=== PATIENT | male | born 1980 | race Caucasian/White ===

== ENCOUNTER 2023-02-09 00:56 | Emergency (ER) | payer OTHER ==
[2023-02-09 01:03] VITALS: TEMP 97.7
--- NOTE | 2023-02-09 01:43 | ED ---
Alcohol HPI - General Source: EMS Mode of arrival: EMS Limitations: no limitations <Yulisa Trivedi - Last Filed: 02/09/23 04:27> <Jovanny Curiel - Last Filed: 02/09/23 09:31> - General Chief Complaint: Alcohol Stated Complaint: ETOH Time Seen by Provider: 02/09/23 01:04 - History of Present Illness Initial Comments: 43-year-old male brought in by EMS. He was found laying down in a ditch. Patient reports that he is currently homeless and was just taking a nap. Patient is a daily drinker and states he normally drinks 3 tall cans per day. States that today he drunk about 5 tall cans. He is having no physical complaints at this time. He denies any injury or trauma. No chest pain, difficulty breathing, abdominal pain, URI-like symptoms, nausea, vomiting. He is requesting something to eat. (Yulisa Trivedi) - Related Data Allergies Allergy/AdvReac Type Severity Reaction Status Date / Time No Known Allergies Allergy Verified 02/09/23 01:03 Review of Systems ROS Other: All systems not noted in ROS Statement are negative. <Yulisa Trivedi - Last Filed: 02/09/23 04:27> ROS Other: All systems not noted in ROS Statement are negative. <Jovanny Curiel - Last Filed: 02/09/23 09:31> ROS Statement: Those systems with pertinent positive or pertinent negative responses have been documented in the HPI. Past Medical History Past Medical History: No Reported History History of Any Multi-Drug Resistant Organisms: None Reported Past Surgical History: No Surgical Hx Reported Past Psychological History: No Psychological Hx Reported Smoking Status: Current every day smoker Past Alcohol Use History: Heavy Past Drug Use History: Marijuana <Yulisa Trivedi - Last Filed: 02/09/23 04:27> General Exam Limitations: no limitations General appearance: alert, in no apparent distress Head exam: Present: atraumatic, normocephalic, normal inspection Eye exam: Present: normal appearance, EOMI. Absent: scleral icterus, periorbital swelling Neck exam: Present: normal inspection, full ROM Respiratory exam: Present: normal lung sounds bilaterally. Absent: respiratory distress, wheezes, rales, rhonchi, stridor Cardiovascular Exam: Present: regular rate, normal rhythm, normal heart sounds. Absent: systolic murmur, diastolic murmur, rubs, gallop, clicks Neurological exam: Present: alert, oriented X3 Psychiatric exam: Present: normal affect, normal mood Skin exam: Present: warm, dry, intact, normal color. Absent: rash <Yulisa Trivedi - Last Filed: 02/09/23 04:27> Course Vital Signs 02/09/23 02/09/23 00:58 04:00 Temperature 97.7 F Pulse Rate 88 80 Respiratory 16 18 Rate Blood Pressure 127/94 130/77 O2 Sat by Pulse 98 98 Oximetry Medical Decision Making <Jovanny Curiel - Last Filed: 02/09/23 09:31> - Medical Decision Making Patient was being monitored for sobriety overnight. I was notified by nursing staff the patient is now sober. He is walking, and is clinically sober at this time. He'll be discharged home at this time. Vital signs remained within acceptable limits. No evidence of withdrawals. He is feeling improved. Diagnosis/symptom? @ -Alcohol intoxication Acute, or Chronic, or Acute on Chronic? @ -Acute Uncomplicated (without systemic symptoms) or Complicated (systemic symptoms)? @ -Uncomplicated Side effects of treatment? @ -none Exacerbation, Progression, or Severe Exacerbation] @ -no Poses a threat to life or bodily function? @ -no (Jovanny Curiel) - Lab Data Lab Results 02/09/23 Range/Units 01:22 Serum Alcohol 327 H* mg/dL Disposition <Trivedi,Yulisa - Last Filed: 02/09/23 04:27> Is patient prescribed a controlled substance at d/c from ED?: No Time of Disposition: 09:30 <Jovanny Curiel - Last Filed: 02/09/23 09:31> Clinical Impression: Alcoholic intoxication Disposition: HOME SELF-CARE Condition: Fair Instructions (If sedation given, give patient instructions): Alcohol Intoxication (ED) Additional Instructions: Follow-up with PCP. Report back to ER with any new or worsening symptoms. Referrals: None,Stated [Primary Care Provider] - 1-2 days Bony Billings MD [STAFF PHYSICIAN] - 1-2 days
[2023-02-09] MEDS ORDERED: THIAMINE 100 MG/ML 2 ML VIAL IM STA (04:16)
[2023-02-09] MEDS ORDERED: LORazepam 2 MG/ML INJ IV PRN ×3 (04:16)
[2023-02-09 06:18] VITALS: BP 130/77; PULSE 80; RESP 18
[2023-02-10] MEDS ORDERED: THIAMINE 100 MG TAB PO SCH (09:00)
== END 2023-02-09 09:49 | disposition home or self-care (01) ==
LOC: EC 00:56
DX: F10.129 Alcohol abuse with intoxication, unspecified (principal); F17.200 Nicotine dependence, unspecified, uncomplicated; F12.90 Cannabis use, unspecified, uncomplicated
CPT/HCPCS: 36415; 99284; 96372; G0480; J3411; 80320

== ENCOUNTER 2023-04-20 05:07 | Observation (INO) | payer OTHER ==
[2023-04-20] MEDS ORDERED: SODIUM CHLORIDE 0.9% 1,000 ML IV ONE (05:32)
--- NOTE | 2023-04-20 05:42 | ED ---
General Adult HPI - General Chief complaint: Alcohol Stated complaint: Detox Time Seen by Provider: 04/20/23 05:20 Source: patient, RN notes reviewed, old records reviewed Mode of arrival: ambulatory Limitations: no limitations - History of Present Illness Initial comments: 43-year-old male with acute alcohol intoxication. Patient admits to heavy alcoh ol consumption over the past one week. He is alert but somewhat lethargic at the time my initial evaluation. No suicidal or homicidal ideation. No vomiting. No chest pain or abdominal pain. - Related Data Allergies Allergy/AdvReac Type Severity Reaction Status Date / Time No Known Allergies Allergy Verified 04/20/23 05:12 Review of Systems ROS Statement: Those systems with pertinent positive or pertinent negative responses have been documented in the HPI. ROS Other: All systems not noted in ROS Statement are negative. Past Medical History Past Medical History: No Reported History History of Any Multi-Drug Resistant Organisms: None Reported Past Surgical History: No Surgical Hx Reported Past Psychological History: No Psychological Hx Reported Smoking Status: Current every day smoker Past Alcohol Use History: Heavy Past Drug Use History: Marijuana General Exam Limitations: no limitations General appearance: alert, appears intoxicated Head exam: Present: atraumatic, normocephalic Eye exam: Present: normal appearance, PERRL ENT exam: Present: mucous membranes dry Neck exam: Present: normal inspection. Absent: tenderness, meningismus Respiratory exam: Present: normal lung sounds bilaterally. Absent: respiratory distress, wheezes Cardiovascular Exam: Present: regular rate, normal rhythm GI/Abdominal exam: Present: soft. Absent: distended, tenderness Extremities exam: Present: normal inspection, normal capillary refill Neurological exam: Present: alert, oriented X3, CN II-XII intact. Absent: motor sensory deficit Psychiatric exam: Present: normal affect, normal mood Skin exam: Present: warm, dry, intact. Absent: cyanosis, diaphoretic Course Vital Signs 04/20/23 05:12 Temperature 97.7 F Pulse Rate 94 Respiratory 18 Rate Blood Pressure 145/103 O2 Sat by Pulse 95 Oximetry Medical Decision Making - Medical Decision Making Was pt. sent in by a medical professional or institution (, [facility], PAPER CUP MACHINE TENDER, urgent care, hospital, or half-way...) When possible be specific @ -No Did you speak to anyone other than the patient for history (EMS, parent, family, police, friend...)? What history was obtained from this source @ -No Did you review nursing and triage notes (agree or disagree)? Why? @ -I reviewed and agree with nursing and triage notes Were old charts reviewed (outside hosp., previous admission, EMS record, old EKG, old radiological studies, urgent care reports/EKG's, half-way records)? Report findings @ -No old charts were reviewed Differential Diagnosis (chest pain, altered mental status, abdominal pain women, abdominal pain men, vaginal bleeding, weakness, fever, dyspnea, syncope, headache, dizziness, GI bleed, back pain, seizure, CVA, palpatations, mental health, musculoskeletal)? @ -[Alcohol intoxication EKG interpreted by me (3pts min.). @ -As above X-rays interpreted by me (1pt min.). @ -None done CT interpreted by me (1pt min.). @ -None done U/S interpreted by me (1pt. min.). @ -None done What testing was considered but not performed or refused? (CT, X-rays, U/S, labs)? Why? @ -None What meds were considered but not given or refused? Why? @ -None Did you discuss the management of the patient with other professionals (professionals i.e. Dr., PA, PAPER CUP MACHINE TENDER, lab, RT, psych nurse, foster care social worker, sharepoint developer, teacher, tactical/mobile watch officer, high risk case manager)? Give summary @Down physician group. Was smoking cessation discussed for >3mins.? @ -No Was critical care preformed (if so, how long)? @ -No Were there social determinants of health that impacted care today? How? (Homelessness, low income, unemployed, alcoholism, drug addiction, tang sportation, low edu. Level, literacy, decrease access to med. care, [facility], rehab)? @ -[Homeless, alcohol abuse Was there de-escalation of care discussed even if they declined (Discuss DNR or withdrawal of care, Hospice)? DNR status @ -No What co-morbidities impacted this encounter? (DM, HTN, Smoking, COPD, CAD, Cancer, CVA, ARF, Chemo, Hep., AIDS, mental health diagnosis, sleep apnea, morbid obesity)? @ -None Was patient admitted / discharged? Hospital course, mention meds given and route, prescriptions, significant lab abnormalities, going to OR and other pertinent info. @43-year-old male presents for severe alcohol intoxication. Patient has a blood alcohol level of 380. He is homeless. He does not have any friends or family to contact. He will be observed awaiting sobriety. Undiagnosed new problem with uncertain prognosis? @ -No Drug Therapy requiring intensive monitoring for toxicity (Heparin, Nitro, Insulin, Cardizem)? @ -No Were any procedures done? @ -No Diagnosis/symptom? @ -[Alcohol intoxication Acute, or Chronic, or Acute on Chronic? @ -default Uncomplicated (without systemic symptoms) or Complicated (systemic symptoms)? @ -default Side effects of treatment? @ -No Exacerbation, Progression, or Severe Exacerbation? @ -No Poses a threat to life or bodily function? How? (Chest pain, USA, CT, pneumonia, PE, COPD, DKA, ARF, appy, cholecystitis, CVA, Diverticulitis, Homicidal, Suicidal, threat to staff... and all critical care pts) @Yes, alcohol intoxication - Lab Data Result diagrams: 04/20/23 05:33 04/20/23 05:33 Lab Results 04/20/23 04/20/23 04/20/23 Range/Units 05:33 05:33 05:33 WBC 9.3 (3.8-10.6) k/uL RBC 4.46 (4.30-5.90) m/uL Hgb 14.9 (13.0-17.5) gm/dL Hct 44.4 (39.0-53.0) % MCV 99.6 (80.0-100.0) fL MCH 33.4 (25.0-35.0) pg MCHC 33.6 (31.0-37.0) g/dL RDW 13.6 (11.5-15.5) % Plt Count 224 (150-450) k/uL MPV 7.6 Neutrophils % 40 % Lymphocytes % 45 % Monocytes % 7 % Eosinophils % 3 % Basophils % 1 % Neutrophils # 3.8 (1.3-7.7) k/uL Lymphocytes # 4.2 (1.0-4.8) k/uL Monocytes # 0.6 (0-1.0) k/uL Eosinophils # 0.3 (0-0.7) k/uL Basophils # 0.1 (0-0.2) k/uL Sodium 146 H (137-145) mmol/L Potassium 4.3 (3.5-5.1) mmol/L Chloride 110 H (98-107) mmol/L Carbon Dioxide 25 (22-30) mmol/L Anion Gap 11 mmol/L BUN 10 (9-20) mg/dL Creatinine 0.67 (0.66-1.25) mg/dL Est GFR (CKD-EPI)AfAm >90 (>60 ml/min/1.73 sqM) Est GFR (CKD-EPI)NonAf >90 (>60 ml/min/1.73 sqM) Glucose 81 (74-99) mg/dL Plasma Lactic Acid Yonatan 1.4 (0.7-2.0) mmol/L Calcium 8.4 (8.4-10.2) mg/dL Total Bilirubin 0.5 (0.2-1.3) mg/dL AST 90 H (17-59) U/L ALT 57 H (4-49) U/L Alkaline Phosphatase 65 (38-126) U/L Total Protein 7.5 (6.3-8.2) g/dL Albumin 4.4 (3.5-5.0) g/dL Serum Alcohol 382 H* mg/dL Disposition Clinical Impression: Alcoholic intoxication Disposition: ADMITTED IP TO THIS HOSP Condition: Stable Is patient prescribed a controlled substance at d/c from ED?: No Referrals: None,Stated [Primary Care Provider] - 1-2 days Time of Disposition: 06:24
[2023-04-20 06:01] LABS: Basophils # (A) 0.1 k/uL (0-0.2); Basophils % (A) 1 %; Eosinophils # (A) 0.3 k/uL (0-0.7); Eosinophils % (A) 3 %; HCT 44.4 % (39.0-53.0); HGB 14.9 gm/dL (13.0-17.5); Lymphocytes # (A) 4.2 k/uL (1.0-4.8); Lymphocytes % (A) 45 %; MCH 33.4 pg (25.0-35.0); MCHC 33.6 g/dL (31.0-37.0); MCV 99.6 fL (80.0-100.0); Mean Platelet Volume 7.6; Monocytes # (A) 0.6 k/uL (0-1.0); Monocytes % (A) 7 %; Neutrophils # (A) 3.8 k/uL (1.3-7.7); Neutrophils % (A) 40 %; Platelet Count 224 k/uL (150-450); RBC 4.46 m/uL (4.30-5.90); RDW 13.6 % (11.5-15.5); WBC 9.3 k/uL (3.8-10.6)
[2023-04-20 06:06] LABS: ALT 57 U/L (4-49); AST 90 U/L (17-59); African American GFR (CKD) >90 (>60 ml/min/1.73 sqM); Albumin 4.4 g/dL (3.5-5.0); Alkaline Phosphatase 65 U/L (38-126); Anion Gap 11 mmol/L; Blood Urea Nitrogen 10 mg/dL (9-20); Calcium 8.4 mg/dL (8.4-10.2); Carbon Dioxide 25 mmol/L (22-30); Chloride 110 mmol/L (98-107); Glucose 81 mg/dL (74-99); Non-African American GFR(CKD) >90 (>60 ml/min/1.73 sqM); Potassium 4.3 mmol/L (3.5-5.1); Sodium 146 mmol/L (137-145); Total Bilirubin 0.5 mg/dL (0.2-1.3); Total Protein 7.5 g/dL (6.3-8.2)
[2023-04-20 06:17] LABS: Alcohol 382 mg/dL
[2023-04-20] MEDS ORDERED: NALOXONE 0.4 MG/ML 1 ML VIAL IV PRN (06:22)
[2023-04-20] MEDS: SODIUM CHLORIDE 0.9% 1,000 ML IV SCH (07:01)
[2023-04-20] MEDS ORDERED: LORazepam 2 MG/ML INJ IV PRN ×2 (08:23)
[2023-04-20] MEDS ORDERED: ONDANSETRON 4 MG/2 ML VIAL IVP PRN (08:23)
[2023-04-20] MEDS ORDERED: LORazepam 1 MG TAB PO PRN ×2 (08:23)
[2023-04-20] MEDS ORDERED: THIAMINE 100 MG/ML 2 ML VIAL IM STA (08:23)
[2023-04-20] MEDS ORDERED: LORazepam 0.5 MG TAB PO PRN (08:23)
[2023-04-20] MEDS ORDERED: MELATONIN 3 MG TABLET PO PRN (08:23)
[2023-04-20] MEDS ORDERED: ACETAMINOPHEN TAB 325 MG TAB PO PRN (08:23)
--- NOTE | 2023-04-20 09:13 | P.HPIM ---
History of Present Illness H&P Date: 04/20/23 History of Presenting Illness: Patient is a 43-year-old male with a past medical history of chronic alcohol abuse reportedly drinking one fifth of liquor daily, nicotine dependence, and cannabinoid use disorder. Patient presented to the emergency department with alcohol intoxication, he reports undergoing a binge over the past couple weeks drinking approximately 2 fifths per day and he came to the emergency department for assistance with detox. Patient reports history of pretty significant DTs with previous hospitalizations. He denies previous intubations or ICU status. Patient denies previous withdrawal seizure. He does report smoking greater than one pack of cigarettes daily along with daily cannabinoid use, but denies any other drug use. Patient reports he is currently homeless and requesting assistance with medical detox and planning to attend inpatient drug and alcohol rehab upon discharge he is able to get into one. Upon arrival to the emergency department patient underwent full evaluation. Vital signs are stable with blood pressure 145/103, heart rate 94, respiratory rate 18, temp 97.7F, and SpO2 of 95% on room air. Labs completed and reviewed. CBC unremarkable. BMP revealing hypernatremia with sodium of 146 hyperchloremia with chloride of 110. Liver profile showing elevated AST of 90 and ALT of 57. Serum alcohol level was 382. Patient was given IV fluid bolus and started on maintenance infusion. Discussed patient complaints, physical exam findings, and laboratory analysis in detail with the ED physician. Patient being admitted under our services for alcohol intoxication and plans for medical detox. Review of systems: Pertinent positives and negatives as discussed in HPI, a complete review of systems was performed and all other systems are negative. Physical exam: Vital signs reviewed and stable. General: Nontoxic, no distress and appears older than stated age. Disheveled appearance. Derm: Skin warm and dry, normal coloration for ethnicity. Head: Atraumatic, normocephalic and symmetric. Eyes: EOMs intact, no lid lag, and anicteric sclera Mouth: no lip lesions, mucus membranes moist Cardiovascular: regular rate and rhythm with normal S1S2, no murmur, positive posterior tibial pulses bilaterally, and cap refill < 2 seconds. Lungs: Respirations even, regular, and unlabored on room air. Lungs CTA bilaterally, no rhonchi, no rales, no wheezing, and no accessory muscle usage. Abdominal: soft, nontender to palpation, no guarding, no appreciable organomegaly Ext: ROM intact. No gross muscle atrophy, no edema, no contractures Neuro: Speech clear, face symmetrical and CN II-XII grossly intact with no noted focal neuro deficits Psych: Alert and oriented to person, place, time, and situation. Appropriate and pleasant affect. Assessment and Plan of Care: Patient is a 43-year-old male with a past medical history of chronic alcohol abuse whom presented to the emergency department with alcohol intoxication reporting a two-week beltrán. Patient reports history is significant DTs requiring hospitalization and states he has been admitted to inpatient drug and alcohol rehabilitation centers multiple times. Patient requesting help getting clean with medical detox at this time. Patient reports he plans on attending rehab at time of discharge. Data review: Vital signs are stable with blood pressure 145/103, heart rate 94, respiratory rate 18, temp 97.7F, and SpO2 of 95% on room air. -Labs completed and reviewed. CBC unremarkable. BMP revealing hypernatremia with sodium of 146 hyperchloremia with chloride of 110. Liver profile showing elevated AST of 90 and ALT of 57. Serum alcohol level was 382. Patient was given IV fluid bolus and started on maintenance infusion. Discussed patient complaints, physical exam findings, and laboratory analysis in detail with the ED physician. Patient being admitted under our services for alcohol intoxication and plans for medical detox. Alcohol intoxication an active alcoholic Impending alcohol withdrawal, history of DTs Elevated liver enzymes secondary to chronic alcohol abuse -Order placed for monitoring of CIWA scores and patient to be medicated with Ativan 0.5 mg every 4 hours as needed for CIWA score of 4-5, Ativan 1 mg every 4 hours for CIWA score of 6-7, Ativan 2 mg every 3 hours CIWA score of 8-9, and Ativan 2 mg every 2 hours forr CIWA score of 10 or greater. -Continuous IV hydration. -Thiamine 100 mg twice a day -Multivitamin daily -Folate 1 mg daily -Seizure, fall, aspiration, and elopement precautions in place. -Urine drug screen ordered -Continued close monitoring of electrolytes and replace as needed. -Telemetry monitoring. Nicotine dependence Cannabinoid use disorder -Patient to be encouraged on smoking cessation and cessation and use of marijuana. -Order placed for nicotine patch 21 mg daily. The patient is admitted with an anticipated greater than 2 midnight stay for evaluation of alcohol intoxication with plans for medical detox CODE STATUS: Full code DVT prophylaxis: Lovenox Discussed with: Patient, RN, in ED physician Anticipated discharge date: Clinical course to determine Anticipated discharge place: Patient plans on attending inpatient drug and alcohol rehab center Patient was seen independently by Nurse Practitioner. This document was prepared using [employer] dictation software. Please allow for errors in outside machinist helper while rare they do occur. Lyndon Henao NP rendered care for this patient independently, reviewed the findings and plan as documented in the note above. I did not physically speak with or examine the patient on this date. Past Medical History Past Medical History: No Reported History History of Any Multi-Drug Resistant Organisms: None Reported Past Surgical History: No Surgical Hx Reported Past Psychological History: No Psychological Hx Reported Smoking Status: Current every day smoker Past Alcohol Use History: Heavy Past Drug Use History: Marijuana Medications and Allergies Home Medications Medication Instructions Recorded Confirmed Type No Known Home Medications 04/20/23 04/20/23 History Allergies Allergy/AdvReac Type Severity Reaction Status Date / Time No Known Allergies Allergy Verified 04/20/23 07:08 Physical Exam Vitals: Vital Signs Temp Pulse Resp BP Pulse Ox 04/20/23 08:18 64 16 100/73 93 L 04/20/23 07:30 60 16 102/75 92 L 04/20/23 06:40 63 18 117/88 93 L 04/20/23 05:12 97.7 F 94 18 145/103 95 Intake and Output 04/19/23 04/20/23 04/20/23 22:59 06:59 14:59 Other: Weight 58.967 kg Results CBC & Chem 7: 04/20/23 05:33 04/20/23 05:33 Labs: Abnormal Lab Results - Last 24 Hours (Table) 04/20/23 Range/Units 05:33 Sodium 146 H (137-145) mmol/L Chloride 110 H (98-107) mmol/L AST 90 H (17-59) U/L ALT 57 H (4-49) U/L Serum Alcohol 382 H* mg/dL
[2023-04-20] MEDS: ENOXAPARIN 40 MG/0.4 ML SYRINGE SQ SCH (09:38)
[2023-04-20] MEDS: FOLIC ACID 1 MG TAB PO SCH (09:38)
[2023-04-20] MEDS: MULTIVITAMINS, THERA 1 EACH TAB PO SCH (09:38)
[2023-04-20] MEDS: NICOTINE 21MG/24HR PATCH TRANSDERM SCH (09:39)
[2023-04-20] MEDS: KETOROLAC 15 MG/ML 1 ML VIAL IVP PRN (17:40)
[2023-04-20] MEDS: LORazepam 1 MG TAB PO PRN (17:40)
[2023-04-20 23:21] LABS: Amphetamine Screen,Urine Not Detected (NotDetected); Barbiturate Screen,Urine Not Detected (NotDetected); Benzodiazepines Screen,Urine Detected (NotDetected); Cocaine Screen,Urine Not Detected (NotDetected); Methadone Screen, Urine Not Detected (NotDetected); Opiate Screen,Urine Not Detected (NotDetected); Oxycodone Screen, Urine Not Detected (NotDetected); Phencyclidine Screen,Urine Not Detected (NotDetected); Tricyclic Antidepressant,Urine Not Detected (NotDetected); Urn Cannabinoid Scrn Detected (NotDetected)
[2023-04-21] MEDS: SODIUM CHLORIDE 0.9% 1,000 ML IV SCH ×2 (01:21→11:11)
[2023-04-21] MEDS: LORazepam 1 MG TAB PO PRN ×4 (04:49→22:44)
[2023-04-21] MEDS: THIAMINE 100 MG TAB PO SCH (11:11)
[2023-04-21] MEDS: ENOXAPARIN 40 MG/0.4 ML SYRINGE SQ SCH (11:11)
[2023-04-21] MEDS: NICOTINE 21MG/24HR PATCH TRANSDERM SCH (11:11)
[2023-04-21] MEDS: FOLIC ACID 1 MG TAB PO SCH (11:11)
[2023-04-21] MEDS: MULTIVITAMINS, THERA 1 EACH TAB PO SCH (11:11)
--- NOTE | 2023-04-21 15:16 | P.PN ---
Subjective Progress Note Date: 04/21/23 Hospital course: Patient is a 43-year-old male with a past medical history of chronic alcohol abuse reportedly drinking one fifth of liquor daily, nicotine dependence, and cannabinoid use disorder. Patient presented to the emergency department with alcohol intoxication, he reported undergoing a binge over the past couple weeks drinking approximately 2 fifths per day and he came to the emergency department for assistance with detox. Patient reports history of pretty significant DTs with previous hospitalizations. He denies previous intubations or ICU status. Patient denies previous withdrawal seizure. He does report smoking greater than one pack of cigarettes daily along with daily cannabinoid use, but denies any other drug use. Patient reports he is currently homeless and requesting assistance with medical detox and planning to attend inpatient drug and alcohol rehab upon discharge he is able to get into one. Upon arrival to the emergency department patient underwent full evaluation. Vital signs are stable with blood pressure 145/103, heart rate 94, respiratory rate 18, temp 97.7F, and SpO2 of 95% on room air. Labs completed and reviewed. CBC unremarkable. BMP revealing hypernatremia with sodium of 146 hyperchloremia with chloride of 110. Liver profile showing elevated AST of 90 and ALT of 57. Serum alcohol level was 382. Patient was given IV fluid bolus and started on maintenance infusion. Discussed patient complaints, physical exam findings, and laboratory analysis in detail with the ED physician. Patient was admitted under our services for alcohol intoxication and plans for medical detox. Physical exam: Vital signs reviewed and stable. General: Nontoxic, no distress and appears older than stated age. Disheveled appearance. Derm: Skin warm and dry, normal coloration for ethnicity. Head: Atraumatic, normocephalic and symmetric. Eyes: EOMs intact, no lid lag, and anicteric sclera Mouth: no lip lesions, mucus membranes moist Cardiovascular: regular rate and rhythm with normal S1S2, no murmur, positive posterior tibial pulses bilaterally, and cap refill < 2 seconds. Lungs: Respirations even, regular, and unlabored on room air. Lungs CTA bilaterally, no rhonchi, no rales, no wheezing, and no accessory muscle usage. Abdominal: soft, nontender to palpation, no guarding, no appreciable organomegaly Ext: ROM intact. No gross muscle atrophy, no edema, no contractures Neuro: Speech clear, face symmetrical and CN II-XII grossly intact with no noted focal neuro deficits Psych: Alert and oriented to person, place, time, and situation. Appropriate and pleasant affect. Assessment and Plan of Care: Patient is a 43-year-old male with a past medical history of chronic alcohol abuse whom presented to the emergency department with alcohol intoxication reporting a two-week beltrán. Patient reported history of significant DTs requiring hospitalization and stated he has been admitted to inpatient drug and alcohol rehabilitation centers multiple times. Patient requesting help getting clean with medical detox at this time. Patient reports he plans on attending rehab at time of discharge. Alcohol intoxication an active alcoholic Impending alcohol withdrawal, history of DTs Elevated liver enzymes secondary to chronic alcohol abuse -Continue monitoring of CIWA scores and patient to be medicated with Ativan 0.5 mg every 4 hours as needed for CIWA score of 4-5, Ativan 1 mg every 4 hours for CIWA score of 6-7, Ativan 2 mg every 3 hours CIWA score of 8-9, and Ativan 2 mg every 2 hours forr CIWA score of 10 or greater. -Patient has had a total of 6 mg of Ativan over the past 24 hours with the most recent CIWA score of 7. -Continuous IV hydration with 0.9% normal saline at 75 mL's per hour. -Continue Thiamine 100 mg twice a day, Multivitamin daily, and Folate 1 mg daily -Seizure, fall, aspiration, and elopement precautions in place. -Continued close monitoring of electrolytes and replace as needed. -Telemetry monitoring. Nicotine dependence Cannabinoid use disorder -Patient to be encouraged on smoking cessation and cessation and use of marijuana. -Order placed for nicotine patch 21 mg daily. Data review: Vital signs are stable with blood pressure 145/103, heart rate 94, respiratory rate 18, temp 97.7F, and SpO2 of 95% on room air. -Urine drug screen resulting positive for benzodiazepines which of been administered while in the hospital along with marijuana. -Vital signs reviewed and stable with blood pressure 138/94, heart rate 89, respiratory rate 18, temp 98.5F SpO2 of 97% on room air. CODE STATUS: Full code DVT prophylaxis: Lovenox Discussed with: Patient and RN Anticipated discharge date: Clinical course to determine Anticipated discharge place: Patient plans on attending inpatient drug and alcohol rehab center Patient was seen independently by Nurse Practitioner. This document was prepared using [email or web address] dictation software. Please allow for errors in tower switch operator while rare they do occur. Lyndon Henao PARK WORKER SUPERVISOR rendered care for this patient independently, reviewed the findings and plan as documented in the note above. I did not physically speak with or examine the patient on this date. Objective - Vital Signs Vital signs: Vital Signs Temp 98.5 F 04/21/23 07:10 Pulse 89 04/21/23 07:10 Resp 18 04/21/23 07:10 BP 138/94 04/21/23 07:10 Pulse Ox 97 04/21/23 07:10 FiO2 Intake & Output 04/20/23 04/21/23 04/21/23 18:59 06:59 18:59 Weight 58.967 kg Other: Voiding Method Toilet # Voids 3 - Labs CBC & Chem 7: 04/22/23 08:54 04/22/23 08:54 Labs: Abnormal Lab Results - Last 24 Hours (Table) 04/20/23 Range/Units 22:55 U Benzodiazepines Scrn Detected H (NotDetected) U Marijuana (THC) Screen Detected H (NotDetected)
[2023-04-22] MEDS: LORazepam 1 MG TAB PO PRN ×4 (04:06→23:58)
[2023-04-22] MEDS: SODIUM CHLORIDE 0.9% 1,000 ML IV SCH ×2 (05:47→09:01)
[2023-04-22] MEDS: MULTIVITAMINS, THERA 1 EACH TAB PO SCH (09:00)
[2023-04-22] MEDS: NICOTINE 21MG/24HR PATCH TRANSDERM SCH (09:00)
[2023-04-22] MEDS: ENOXAPARIN 40 MG/0.4 ML SYRINGE SQ SCH (09:00)
[2023-04-22] MEDS: FOLIC ACID 1 MG TAB PO SCH (09:00)
[2023-04-22] MEDS: THIAMINE 100 MG TAB PO SCH (09:00)
[2023-04-22 10:32] LABS: ALT 54 U/L (4-49); AST 75 U/L (17-59); African American GFR (CKD) >90 (>60 ml/min/1.73 sqM); Albumin 3.8 g/dL (3.5-5.0); Albumin/Globulin Ratio 1.2; Alkaline Phosphatase 68 U/L (38-126); Anion Gap 7 mmol/L; Blood Urea Nitrogen 12 mg/dL (9-20); Calcium 8.9 mg/dL (8.4-10.2); Carbon Dioxide 25 mmol/L (22-30); Chloride 104 mmol/L (98-107); Globulin 3.1 g/dL; Glucose 99 mg/dL (74-99); Non-African American GFR(CKD) >90 (>60 ml/min/1.73 sqM); Potassium 4.1 mmol/L (3.5-5.1); Sodium 136 mmol/L (137-145); Total Bilirubin 0.9 mg/dL (0.2-1.3); Total Protein 6.9 g/dL (6.3-8.2)
[2023-04-22 10:40] LABS: HCT 45.4 % (39.0-53.0); HGB 14.7 gm/dL (13.0-17.5); MCH 33.4 pg (25.0-35.0); MCHC 32.5 g/dL (31.0-37.0); MCV 102.8 fL (80.0-100.0); Macrocytosis Slight; Mean Platelet Volume 9.5; Platelet Count 149 k/uL (150-450); RBC 4.41 m/uL (4.30-5.90); RDW 13.7 % (11.5-15.5); WBC 10.2 k/uL (3.8-10.6)
[2023-04-22] MEDS: KETOROLAC 15 MG/ML 1 ML VIAL IVP PRN ×2 (15:56→23:56)
--- NOTE | 2023-04-22 17:40 | P.PN ---
Subjective Progress Note Date: 04/22/23 Hospital course: Patient is a 43-year-old male with a past medical history of chronic alcohol abuse reportedly drinking one fifth of liquor daily, nicotine dependence, and cannabinoid use disorder. Patient presented to the emergency department with alcohol intoxication, he reported undergoing a binge over the past couple weeks drinking approximately 2 fifths per day and he came to the emergency department for assistance with detox. Patient reports history of pretty significant DTs with previous hospitalizations. He denies previous intubations or ICU status. Patient denies previous withdrawal seizure. He does report smoking greater than one pack of cigarettes daily along with daily cannabinoid use, but denies any other drug use. Patient reports he is currently homeless and requesting assistance with medical detox and planning to attend inpatient drug and alcohol rehab upon discharge he is able to get into one. Upon arrival to the emergency department patient underwent full evaluation. Vital signs are stable with blood pressure 145/103, heart rate 94, respiratory rate 18, temp 97.7F, and SpO2 of 95% on room air. Labs completed and reviewed. CBC unremarkable. BMP revealing hypernatremia with sodium of 146 hyperchloremia with chloride of 110. Liver profile showing elevated AST of 90 and ALT of 57. Serum alcohol level was 382. Patient was given IV fluid bolus and started on maintenance infusion. Discussed patient complaints, physical exam findings, and laboratory analysis in detail with the ED physician. Patient was admitted under our services for alcohol intoxication and plans for medical detox. Physical exam: Patient seen and fully evaluated at bedside this morning. Mild tremors present. Patient reports episodes of nausea and continued mild tremors otherwise denies having any complaints at this time. Patient reports "this is the easy he has detoxed in the past." Vital signs reviewed and stable. General: Nontoxic, no distress and appears older than stated age. Disheveled appearance. Derm: Skin warm and dry, normal coloration for ethnicity. Head: Atraumatic, normocephalic and symmetric. Eyes: EOMs intact, no lid lag, and anicteric sclera Mouth: no lip lesions, mucus membranes moist Cardiovascular: regular rate and rhythm with normal S1S2, no murmur, positive posterior tibial pulses bilaterally, and cap refill < 2 seconds. Lungs: Respirations even, regular, and unlabored on room air. Lungs CTA bilaterally, no rhonchi, no rales, no wheezing, and no accessory muscle usage. Abdominal: soft, nontender to palpation, no guarding, no appreciable organomegaly Ext: ROM intact. No gross muscle atrophy, no edema, no contractures Neuro: Speech clear, face symmetrical and CN II-XII grossly intact with no noted focal neuro deficits Psych: Alert and oriented to person, place, time, and situation. Appropriate and pleasant affect. Assessment and Plan of Care: Patient is a 43-year-old male with a past medical history of chronic alcohol abuse whom presented to the emergency department with alcohol intoxication reporting a two-week beltrán. Patient reported history of significant DTs requiring hospitalization and stated he has been admitted to inpatient drug and alcohol rehabilitation centers multiple times. Patient requesting help getting clean with medical detox at this time. Patient reports he plans on attending rehab at time of discharge. Alcohol intoxication an active alcoholic Impending alcohol withdrawal, history of DTs Elevated liver enzymes secondary to chronic alcohol abuse -Continue monitoring of CIWA scores and patient to be medicated with Ativan 0.5 mg every 4 hours as needed for CIWA score of 4-5, Ativan 1 mg every 4 hours for CIWA score of 6-7, Ativan 2 mg every 3 hours CIWA score of 8-9, and Ativan 2 mg every 2 hours forr CIWA score of 10 or greater. -Patient has had a total of 7.5 mg of Ativan over the past 24 hours with the most recent CIWA score of 7. -Patient tolerating oral intake, no episodes of vomiting. IV fluids discontinued at this time. -Continue Thiamine 100 mg twice a day, Multivitamin daily, and Folate 1 mg daily -Seizure, fall, aspiration, and elopement precautions in place. -Continued close monitoring of electrolytes and replace as needed. -Telemetry monitoring. Nicotine dependence Cannabinoid use disorder -Patien encouraged on smoking cessation and cessation and use of marijuana. -Continue nicotine patch 21 mg daily. Data review: -Vital signs are stable with blood pressure 147/105, heart rate 86, respiratory rate 18, temp 98.1F, SpO2 of 90% on room air. -Morning labs reviewed. CBC showing thrombocytopenia with platelet count of 149 and macrocytosis with MCV of 102.8. BMP revealing mild hyponatremia with sodium of 146 and otherwise unremarkable. Liver profile showing elevated AST of 75 and ALT of 54. Magnesium normal findings at 2.0 calcium normal at 8.9. CODE STATUS: Full code DVT prophylaxis: Lovenox Discussed with: Patient and RN Anticipated discharge date: Clinical course to determine, possibly tomorrow morning pending CIWA score and need for Ativan over the next [address]: Patient plans on attending inpatient drug and alcohol rehab center Patient was seen independently by Nurse Practitioner. This document was prepared using [employer] dictation software. Please allow for errors in information coder while rare they do occur. I reviewed the documentation as provided by the FITO above, who is the original author of this note. I agree with the documented assessment and plan, with the following changes: none Objective - Vital Signs Vital signs: Vital Signs Temp 98.1 F 04/22/23 07:15 Pulse 86 04/22/23 07:15 Resp 18 04/22/23 07:15 BP 147/105 04/22/23 07:15 Pulse Ox 98 04/22/23 07:15 FiO2 Intake & Output 04/21/23 04/22/23 04/22/23 18:59 06:59 18:59 Other: Voiding Method Toilet Toilet # Voids 2 3 - Labs CBC & Chem 7: 04/22/23 08:54 04/22/23 08:54
[2023-04-22 20:22] VITALS: RESP 19
[2023-04-23 02:31] VITALS: PULSE 68; TEMP 98.1
[2023-04-23] MEDS: LORazepam 1 MG TAB PO PRN (06:40)
[2023-04-23 09:34] VITALS: BP 132/81
[2023-04-23] MEDS: ENOXAPARIN 40 MG/0.4 ML SYRINGE SQ SCH (10:28)
[2023-04-23] MEDS: NICOTINE 21MG/24HR PATCH TRANSDERM SCH (10:28)
[2023-04-23] MEDS: THIAMINE 100 MG TAB PO SCH (10:28)
[2023-04-23] MEDS: MULTIVITAMINS, THERA 1 EACH TAB PO SCH (10:28)
[2023-04-23] MEDS: FOLIC ACID 1 MG TAB PO SCH (10:28)
--- NOTE | 2023-04-23 17:28 | P.DS ---
Providers Date of admission: 04/20/23 06:22 Attending physician: Teodoro Gould MD Primary care physician: Stated None Hospital Course: Discharge Diagnosis: Alcohol withdrawal with DTs. Alcohol intoxication an active alcoholic, patient clinically sober and went through a 3 night hospitalization for medical detox. Elevated liver enzymes secondary to chronic alcohol abuse Nicotine dependence Cannabinoid use disorder Hospital Course: Patient is a 43-year-old male with a past medical history of chronic alcohol abuse reportedly drinking one fifth of liquor daily, nicotine dependence, and cannabinoid use disorder. Patient presented to the emergency department with alcohol intoxication, he reported undergoing a binge over the past couple weeks drinking approximately 2 fifths per day and he came to the emergency department for assistance with detox. Patient reports history of pretty significant DTs with previous hospitalizations. He denies previous intubations or ICU status. Patient denies previous withdrawal seizure. He does report smoking greater than one pack of cigarettes daily along with daily cannabinoid use, but denies any other drug use. Patient reports he is currently homeless and requesting assistance with medical detox and planning to attend inpatient drug and alcohol rehab upon discharge he is able to get into one. Upon arrival to the emergency department patient underwent full evaluation. Vital signs are stable with blood pressure 145/103, heart rate 94, respiratory rate 18, temp 97.7F, and SpO2 of 95% on room air. Labs completed and reviewed. CBC unremarkable. BMP revealing hypernatremia with sodium of 146 hyperchloremia with chloride of 110. Liver profile showing elevated AST of 90 and ALT of 57. Serum alcohol level was 382. Patient was given IV fluid bolus and started on maintenance infusion. Patient was admitted under our services for alcohol intoxication and plans for medical detox. Patient underwent 3 night hospitalization for treatment and medical detox. Patient has received a total of 6 mg of Ativan over the past 24 hours. He currently reports feeling good this morning and would like to be discharged. Vital signs reviewed and stable with blood pressure 132/81, heart rate 67, respiratory rate 16, temp 98.1F, SpO2 of 97% on room air. Patient was given a list of community resources and inpatient drug and alcohol rehabilitation centers available to him. Patient reports that he has called in his unless to get into rehab but is going to stay with his sister at this time. CIWA score is 0. Medically, patient stable at this time. Patient strongly advised to avoid any and all alcohol use. Physical exam: Vital signs reviewed and stable. General: Nontoxic, no distress and appears older than stated age. Derm: Skin warm and dry, normal coloration for ethnicity. Head: Atraumatic, normocephalic and symmetric. Eyes: EOMs intact, no lid lag, and anicteric sclera Mouth: no lip lesions, mucus membranes moist Cardiovascular: regular rate and rhythm with normal S1S2, no murmur, positive posterior tibial pulses bilaterally, and cap refill < 2 seconds. Lungs: Respirations even, regular, and unlabored on room air. Lungs CTA bilaterally, no rhonchi, no rales, no wheezing, and no accessory muscle usage. Abdominal: soft, nontender to palpation, no guarding, no appreciable organomegaly Ext: ROM intact. No gross muscle atrophy, no edema, no contractures Neuro: Speech clear, face symmetrical and CN II-XII grossly intact with no noted focal neuro deficits Psych: Alert and oriented to person, place, time, and situation. Appropriate and pleasant affect. A total of 32 minutes of time were spent preparing this complex discharge summary. Pt was discharged on 04/23/23 11:58 AM. Patient was seen independently by Nurse Practitioner. This document was prepared using [employer] dictation software. Please allow for errors in cook helper while rare they do occur. I reviewed the documentation as provided by the FITO above, who is the original author of this note. I agree with the documented assessment and plan, with the following changes: none Patient Condition at Discharge: Stable Plan - Discharge Summary Discharge Rx Participant: Yes New Discharge Prescriptions: New Folic Acid 1 mg PO DAILY tab Multivitamins, Thera [Multivitamin (formulary)] 1 each PO DAILY tab Thiamine [Vitamin B-1] 100 mg PO DAILY tab Discharge Medication List Folic Acid 1 mg PO DAILY tab 04/23/23 [Rx] Multivitamins, Thera [Multivitamin (formulary)] 1 each PO DAILY tab 04/23/23 [Rx] Thiamine [Vitamin B-1] 100 mg PO DAILY tab 04/23/23 [Rx] Follow up Appointment(s)/Referral(s): None,Stated [Primary Care Provider] - 1-2 days (Please call a primary care provider for follow-up appointment.) Patient Instructions/Handouts: Alcohol Intoxication (DC), Abuse of Alcohol (DC), Alcohol Withdrawal (DC) Activity/Diet/Wound Care/Special Instructions: Activity: As tolerated. Take breaks as needed. Diet: Heart healthy and carb consistent diet. Avoid salts, or foods with hidden salts such as canned or boxed foods and frozen dinners. Extra salt makes your heart work harder and traps the fluid in your body for longer. Special Instructions: Take all of your medications as directed and remember to keep all of your doctor's appointments and follow-up as needed. Strongly encourage you to refrain from any and all alcohol use. Thank you for allowing us to participate in your care, it was truly a pleasure having you for our patient!!! Discharge/Stand Alone Forms: AA Meetings [place], [facility], [facility], Outpatient Counseling, Inp Substance Abuse Facilities, Area PCPs Discharge Disposition: HOME SELF-CARE
== END 2023-04-23 14:44 | disposition home or self-care (01) ==
LOC: EC 05:07 → 4SSUR 06:22
PROVIDERS: ADMIT Internal Medicine; ATTEND Internal Medicine
DX: F10.231 Alcohol dependence with withdrawal delirium (principal); F10.229 Alcohol dependence with intoxication, unspecified; F17.210 Nicotine dependence, cigarettes, uncomplicated; R74.8 Abnormal levels of other serum enzymes; F12.10 Cannabis abuse, uncomplicated; Y90.8 Blood alcohol level of 240 mg/100 ml or more; Z59.00 Homelessness unspecified
CPT/HCPCS: 96376; 96372 ×4; 96374; 96361; 99284; 36415; 80053 ×2; 83605; 83735; 85025; 85027; 80306; G0378 ×5; G0480; S4990 ×4; J3411; J1650 ×4; J1885 ×2; 80320

== ENCOUNTER 2023-05-22 20:45 | Emergency (ER) | payer OTHER ==
[2023-05-22 20:50] VITALS: RESP 18; TEMP 98
--- NOTE | 2023-05-22 23:41 | ED ---
General Adult HPI - General Chief complaint: Alcohol Stated complaint: alochol poising Time Seen by Provider: 05/22/23 23:14 Source: patient Mode of arrival: ambulatory Limitations: no limitations - History of Present Illness Initial comments: Dictation was produced using [employer] dictation software. please excuse any grammatical, word or spelling errors. Chief Complaint: 43-year-old alcoholic male presents emergency department for alcohol intoxication History of Present Illness: Patient is a 43-year-old male just allegedly dischar jono from rehab facility for alcohol abuse presents to the ER for alcohol intoxication. States that he relapsed. Patient reports that he is homeless. States that he drank a pint of liquor today. Patient is a poor historian. The ROS documented in this emergency department record has been reviewed and confirmed by me. Those systems with pertinent positive or negative responses have been documented in the HPI. All other systems are other negative and/or noncontributory. - Related Data Previous Rx's Medication Instructions Recorded Folic Acid 1 mg PO DAILY tab 04/23/23 Multivitamins, Thera [Multivitamin 1 each PO DAILY tab 04/23/23 (formulary)] Thiamine [Vitamin B-1] 100 mg PO DAILY tab 04/23/23 Allergies Allergy/AdvReac Type Severity Reaction Status Date / Time No Known Allergies Allergy Verified 05/22/23 20:49 Review of Systems ROS Statement: Those systems with pertinent positive or pertinent negative responses have been documented in the HPI. ROS Other: All systems not noted in ROS Statement are negative. Past Medical History Past Medical History: No Reported History History of Any Multi-Drug Resistant Organisms: None Reported Past Surgical History: No Surgical Hx Reported Past Anesthesia/Blood Transfusion Reactions: No Reported Reaction Past Psychological History: No Psychological Hx Reported Smoking Status: Current every day smoker Past Alcohol Use History: Heavy Past Drug Use History: Marijuana General Exam - General Exam Comments Initial Comments: PHYSICAL EXAM: General Impression: Alert and oriented x3, not in acute distress, inebriated, sleepy, uncooperative HEENT: Normocephalic atraumatic, extra-ocular movements intact, pupils equal and reactive to light bilaterally, mucous membranes moist. Cardiovascular: Heart regular rate and rhythm Chest: Able to complete full sentences, no retractions, no tachypnea Abdomen: abdomen soft, non-tender, non-distended, no organomegaly Musculoskeletal: Pulses present and equal in all extremities, no peripheral edema Motor: no focal deficits noted Neurological: CN II-XII grossly intact, no focal motor or sensory deficits noted Skin: Intact with no visualized rashes Psych: Normal affect and mood Limitations: no limitations Course Vital Signs 05/22/23 20:47 Temperature 98.0 F Pulse Rate 100 Respiratory 18 Rate Blood Pressure 149/99 O2 Sat by Pulse 94 L Oximetry Medical Decision Making - Medical Decision Making Was pt. sent in by a medical professional or institution (, ARMANDO, PERISHABLE FRUIT INSPECTOR, urgent care, hospital, or [place] [facility] [place] facility...) When possible be specific @ -No Did you speak to anyone other than the patient for history (EMS, parent, family, police, friend...)? What history was obtained from this source @ -No Did you review nursing and triage notes (agree or disagree)? Why? @ -I reviewed and agree with nursing and triage notes Were old charts reviewed (outside hosp., previous admission, EMS record, old EKG, old radiological studies, urgent care reports/EKG's, [place] health [place] facility records)? Report findings @ -No old charts were reviewed Differential Diagnosis (chest pain, altered mental status, abdominal pain women, abdominal pain men, vaginal bleeding, musculoskeletal, weakness, fever, dyspnea, syncope, headache, dizziness, GI bleed, back pain, seizure, CVA, palpatations, mental health)? @ -Differential Altered Mental Status: Hypoglycemia, DKA, hypercapnia, ETOH, overdose, CO poisoning, trauma, myxedema coma, HTN encephalopathy, infection, encephalitis, psychosis, intercranial hemorrhage, hepatic encephalopathy, meningitis, CVA, this is not meant to be an all-inclusive list EKG interpreted by me (3pts min.). @ -None done X-rays interpreted by me (1pt min.). @ -None done CT interpreted by me (1pt min.). @ -None done U/S interpreted by me (1pt. min.). @ -None done What testing was considered but not performed or refused? (CT, X-rays, U/S, labs)? Why? @ -None What meds were considered but not given or refused? Why? @ -None Did you discuss the management of the patient with other professionals (professionals i.e. , ARMANDO, PERISHABLE FRUIT INSPECTOR, lab, RT, psych nurse, social worker delinquency prevention, computational mathematician, teacher, veterans service officer, behavioral health case manager)? Give summary @ -No Was smoking cessation discussed for >3mins.? @ -No Was critical care preformed (if so, how long)? @ -No Were there social determinants of health that impacted care today? How? (Homelessness, low income, unemployed, alcoholism, drug addiction, transportation, low edu. Level, literacy, decrease access to med. care, care home, rehab)? @ -No Was there de-escalation of care discussed even if they declined (Discuss DNR or withdrawal of care, Hospice)? DNR status @ -No What co-morbidities impacted this encounter? (DM, HTN, Smoking, COPD, CAD, Cancer, CVA, ARF, Chemo, Hep., AIDS, mental health diagnosis, sleep apnea, morbid obesity)? @ -None Was patient admitted / discharged? Hospital course, mention meds given and route, prescriptions, significant lab abnormalities, going to OR and other pertinent info. @ -43 Year-old no presents to emergency department for alcohol intoxication. Vital signs stable. Physical examination benign. Patient very sleepy he is homeless. Patient allowed to sleep several hours. Reevaluated at bedside at 4:00 AM. Patient able to without, occasions. Tolerate oral intake has no complaints. Patient discharge. Undiagnosed new problem with uncertain prognosis? @ -No Drug Therapy requiring intensive monitoring for toxicity (Heparin, Nitro, Insulin, Cardizem)? @ -No Were any procedures done? @ -No Diagnosis/symptom? Acute, or Chronic, or Acute on Chronic? Uncomplicated (without systemic symptoms) or Complicated (systemic symptoms)? @ -homelessness Side effects of treatment? @ -No Exacerbation, Progression, or Severe Exacerbation? @ -No Poses a threat to life or bodily function? How? (Chest pain, [place], [place], pneumonia, PE, COPD, DKA, ARF, appy, cholecystitis, CVA, Diverticulitis, Homicidal, Suicidal, threat to staff... and all critical care pts) @ -No Disposition Clinical Impression: Homeless Disposition: HOME SELF-CARE Condition: Good Instructions (If sedation given, give patient instructions): Alcohol Intoxication (ED) Is patient prescribed a controlled substance at d/c from ED?: No Referrals: None,Stated [Primary Care Provider] - 1-2 days Time of Disposition: 04:02
[2023-05-23 04:17] VITALS: BP 115/88; PULSE 69
== END 2023-05-23 04:14 | disposition home or self-care (01) ==
LOC: EC 20:45
DX: F10.129 Alcohol abuse with intoxication, unspecified (principal); Z59.00 Homelessness unspecified; F17.200 Nicotine dependence, unspecified, uncomplicated; F12.90 Cannabis use, unspecified, uncomplicated
CPT/HCPCS: 99284

== ENCOUNTER 2023-11-03 03:25 | Observation (INO) | payer OTHER ==
[2023-11-03] MEDS ORDERED: LORazepam 2 MG/ML INJ IV PRN ×3 (03:51)
--- NOTE | 2023-11-03 03:54 | ED ---
Chest Pain HPI - General Chief Complaint: Chest Pain Stated Complaint: Chest pain Time Seen by Provider: 11/03/23 03:26 Source: patient, EMS, RN notes reviewed, old records reviewed Mode of arrival: ambulatory Limitations: no limitations - History of Present Illness Initial Comments: This is a 43-year-old male to the ER for evaluation today. Patient presents today for evaluation regards to chest pain with significant alcohol intoxication. Patient brought to the ER for severe chest pain complains of chest pain here in the ER with no nausea no vomiting no travel history or sick contacts no fever cough or congestion. Patient is a poor historian secondary to clinical state MD Complaint: chest pain, other (Does admit to alcohol intoxication) -: days(s) Onset: during rest, during exertion Pain Location: substernal Pain Radiation: none Severity: moderate Severity scale (1-10): 4 Quality: tightness Consistency: constant Improves With: nothing, nitroglycerin Worsens With: nothing Anginal Symptoms: nausea Treatments Prior to Arrival: none - Related Data Previous Rx's Medication Instructions Recorded Folic Acid 1 mg PO DAILY tab 04/23/23 Multivitamins, Thera [Multivitamin 1 each PO DAILY tab 04/23/23 (formulary)] Thiamine [Vitamin B-1] 100 mg PO DAILY tab 04/23/23 Allergies Allergy/AdvReac Type Severity Reaction Status Date / Time No Known Allergies Allergy Verified 11/03/23 03:34 Review of Systems ROS Statement: Those systems with pertinent positive or pertinent negative responses have been documented in the HPI. ROS Other: All systems not noted in ROS Statement are negative. EKG Findings - EKG Comments: EKG Findings:: EKG is sinus 80 WI 182 QRS 111 QTc 391 - EKG Results: EKG: interpreted by CHRISTOPH Past Medical History Past Medical History: No Reported History History of Any Multi-Drug Resistant Organisms: None Reported Past Surgical History: No Surgical Hx Reported Past Anesthesia/Blood Transfusion Reactions: No Reported Reaction Past Psychological History: No Psychological Hx Reported Smoking Status: Current every day smoker Past Alcohol Use History: Heavy Past Drug Use History: Marijuana General Exam General appearance: alert, appears intoxicated, anxious Head exam: Present: atraumatic, normocephalic, normal inspection Eye exam: Present: normal appearance, PERRL, EOMI. Absent: scleral icterus, conjunctival injection, periorbital swelling ENT exam: Present: normal exam, mucous membranes moist Neck exam: Present: normal inspection. Absent: tenderness, meningismus, lymphadenopathy Respiratory exam: Present: normal lung sounds bilaterally. Absent: respiratory distress, wheezes, rales, rhonchi, stridor Cardiovascular Exam: Present: regular rate, normal rhythm, normal heart sounds. Absent: systolic murmur, diastolic murmur, rubs, gallop, clicks GI/Abdominal exam: Present: soft, normal bowel sounds. Absent: distended, tenderness, guarding, rebound, rigid Extremities exam: Present: normal inspection, full ROM, normal capillary refill. Absent: tenderness, pedal edema, joint swelling, calf tenderness Back exam: Present: normal inspection Neurological exam: Present: alert, oriented X3, CN II-XII intact Psychiatric exam: Present: normal affect, normal mood Skin exam: Present: warm, dry, intact, normal color. Absent: rash Course Vital Signs 11/03/23 03:26 Temperature 97.7 F Pulse Rate 98 Respiratory 18 Rate Blood Pressure 128/96 O2 Sat by Pulse 96 Oximetry - Reevaluation(s) Reevaluation #1: 11/03/23 04:46 Medical record is reviewed Reevaluation #2: 11/03/23 04:46 Patient still with chest pain Reevaluation #3: 11/03/23 04:47 Patient informed of results and questions answered Reevaluation #4: Was pt. sent in by a medical professional or institution (, PA, CHEMICAL WORKER, urgent care, hospital, or care home...) When possible be specific @ -no Did you speak to anyone other than the patient for history (EMS, parent, family, police, friend...)? What history was obtained from this source @ -no Did you review nursing and triage notes (agree or disagree)? Why? @ -agree Are old charts reviewed (outside hosp., previous admission, EMS record, old EKG, old radiological studies, urgent care reports/EKG's, care home records)? Report findings @ -yes Differential Diagnosis (chest pain, altered mental status, abdominal pain women, abdominal pain men, vaginal bleeding, weakness, fever, dyspnea, syncope, headache, dizziness, GI bleed, back pain, seizure, CVA, palpatations, mental health, musculoskeletal)? @ -prior EKG interpreted by me (3pts min.). @ -yes X-rays interpreted by me (1pt min.). @ -yes negative for acute disease CT interpreted by me (1pt min.). @ -no U/S interpreted by me (1pt. min.). @ -no What testing was considered but not performed or refused? (CT, X-rays, U/S, labs)? Why? @ -none What meds were considered but not given or refused? Why? @ -none Did you discuss the management of the patient with other professionals (professionals i.e. , PA, CHEMICAL WORKER, lab, RT, psych nurse, social media project manager, management trainee program stores, teacher, parole or probation officer, medical case worker)? Give summary @ -no Was smoking cessation discussed for >3mins.? @ -no Was critical care preformed (if so, how long)? @ -no Were there social determinants of health that impacted care today? How? (Homelessness, low income, unemployed, alcoholism, drug addiction, transportation, low edu. Level, literacy, decrease access to med. care, custodial, rehab)? @ -none Was there de-escalation of care discussed even if they declined (Discuss DNR or withdrawal of care, Hospice)? DNR status @ -no What co-morbidities impacted this encounter? (DM, HTN, Smoking, COPD, CAD, Cancer, CVA, ARF, Chemo, Hep., AIDS, mental health diagnosis, sleep apnea, morbid obesity)? @ -none Was patient admitted / discharged? Hospital course, mention meds given and route, prescriptions, significant lab abnormalities, going to OR and other pertinent info. @ - Undiagnosed new problem with uncertain prognosis? @ -no Drug Therapy requiring intensive monitoring for toxicity (Heparin, Nitro, Insulin, Cardizem)? @ -no Were any procedures done? @ -no Diagnosis/symptom? @ - Acute, or Chronic, or Acute on Chronic? @ -Acute Uncomplicated (without systemic symptoms) or Complicated (systemic symptoms)? @ -Complicated Side effects of treatment? @ -no Exacerbation, Progression, or Severe Exacerbation? @ -exacerbation Poses a threat to life or bodily function? How? (Chest pain, [place], [place], pneumonia, PE, COPD, DKA, ARF, appy, cholecystitis, CVA, Diverticulitis, Homicidal, Suicidal, threat to staff... and all critical care pts) @ -yes Reevaluation #5: Differential Chest Pain: Stable Angina, Unstable Angina, STEMI, NSTEMI Aortic Dissection, Pneumothorax, Musculoskeletal, Esophageal Spasm GERD, Cholecystitis, Pancreatitis, Zoster, this is not meant to be an all-inclusive list. - Consultations Consultation #1: Spoke with gay who agrees to admit this patient Chest Pain MDM - MDM 43-year-old male with acute alcohol intoxication coming in for chest pain today. Patient will be admitted as a chest pain observation and significant alcohol intoxication Disposition Clinical Impression: Alcoholic intoxication, Chest pain Disposition: ADMITTED IP TO THIS HOSP Condition: Fair Is patient prescribed a controlled substance at d/c from ED?: No Referrals: None,Stated [Primary Care Provider] - 1-2 days Time of Disposition: 04:25
[2023-11-03 04:03] LABS: Basophils # (A) 0.1 k/uL (0-0.2); Basophils % (A) 1 %; Eosinophils # (A) 0.2 k/uL (0-0.7); Eosinophils % (A) 2 %; HCT 43.5 % (39.0-53.0); HGB 14.4 gm/dL (13.0-17.5); Lymphocytes % (A) 33 %; MCHC 33.1 g/dL (31.0-37.0); MCV 96.8 fL (80.0-100.0); Mean Platelet Volume 7.6; Monocytes # (A) 0.6 k/uL (0-1.0); Monocytes % (A) 6 %; Neutrophils % (A) 54 %; Platelet Count 296 k/uL (150-450); RBC 4.49 m/uL (4.30-5.90); RDW 13.1 % (11.5-15.5); WBC 9.3 k/uL (3.8-10.6)
[2023-11-03] MEDS: MORPHINE SULFATE 4 MG/ML SYRINGE IV STA (04:03)
[2023-11-03] MEDS: SODIUM CHLORIDE 0.9% 1,000 ML IV STA (04:03)
[2023-11-03] MEDS: ONDANSETRON 4 MG/2 ML VIAL IVP STA (04:12)
[2023-11-03 04:13] LABS: ALT 46 U/L (4-49); African American GFR (CKD) >90 (>60 ml/min/1.73 sqM); Albumin 4.5 g/dL (3.5-5.0); Anion Gap 10 mmol/L; Blood Urea Nitrogen 11 mg/dL (9-20); Calcium 8.6 mg/dL (8.4-10.2); Carbon Dioxide 25 mmol/L (22-30); Chloride 110 mmol/L (98-107); Glucose 90 mg/dL (74-99); Lipase 284 U/L (23-300); Non-African American GFR(CKD) >90 (>60 ml/min/1.73 sqM); Sodium 145 mmol/L (137-145); Total Bilirubin 0.5 mg/dL (0.2-1.3); Total Protein 7.4 g/dL (6.3-8.2)
[2023-11-03 04:21] LABS: NT-Pro-B-Type Natriuretic Pept <20 pg/mL
[2023-11-03 04:28] LABS: AST 72 U/L (17-59); Alcohol 297 mg/dL; Alkaline Phosphatase 75 U/L (38-126); Magnesium 1.9 mg/dL (1.6-2.3); Potassium 4.7 mmol/L (3.5-5.1)
[2023-11-03 04:31] LABS: INR 0.9 (<1.2)
[2023-11-03] MEDS ORDERED: NALOXONE 0.4 MG/ML 1 ML VIAL IV PRN (04:44)
[2023-11-03] MEDS ORDERED: ONDANSETRON 4 MG/2 ML VIAL IVP PRN (04:44)
--- NOTE | 2023-11-03 05:11 | XR ---
EXAMINATION TYPE: XR chest 1V portable DATE OF EXAM: 11/03/2023 COMPARISON: NONE HISTORY: Chest pain. TECHNIQUE: Single frontal view of the chest is obtained. FINDINGS: Overlying EKG leads are present. There is no focal air space opacity, pleural effusion, or pneumothorax seen. The cardiac silhouette size is within normal limits. The osseous structures ar e intact. IMPRESSION: No acute process.
--- NOTE | 2023-11-03 06:15 | P.HPIM ---
History of Present Illness H&P Date: 11/03/23 Chief Complaint: Chest pain 43-year-old male with history of alcohol dependence and abuse Patient coming in for chest pain. Patient is currently intoxicated and provides limited history. He claims that he always has chest pain without going into specifics looks like his chest pain waxes and wanes depending on activity which would precipitate more chest pain. He describes the chest pain as sharp pain left side of his chest anywhere between 6 and 10 in severity he does not specify how long it lasts or what other symptoms associated with that anything I ask him he says sometimes for shortness of breath nausea vomiting dizziness lightheadedness palpitations and profuse sweating. He looks totally comfortable while he is saying he is currently having chest pain on the left side. He denies having any cardiac workup in the past denies any history of stroke denies any stress test in the past. Otherwise denies any upper respiratory infection symptoms fevers chills nausea vomiting abdominal pain changes in bowel or urinary habit denies any GI bleeding denies any history of blood clots recent travel or hospital stay He admits to have very heavy alcohol consumption he is currently intoxicated. He also admits to heavy smoking and marijuana use review of systems Pertinent positives as noted in HPI. All other systems were reviewed and are negative on exam Constitutional: No acute distress, cooperative Eyes: Anicteric sclerae, moist conjunctiva, Pupils equal round reactive to light ENMT: NC/AT Oropharynx clear, no erythema, or exudates Neck: Supple, no masses, or JVD No carotid bruits No thyromegaly Lungs: Clear to auscultation Clear to percussion Normal respiratory effort, no accessory muscle use Cardiovascular: Heart regular in rate and rhythm, No murmurs, gallops, or rubs No peripheral edema Abdominal: Soft Nontender, no guarding, rebound or rigidity Abdomen moving with respiration Normoactive bowel sounds Extremities: No digital cyanosis No clubbing Pedal pulses intact and symmetrical Radial pulses intact and symmetrical No calf tenderness Psychiatric: Alert and oriented to person, place and time Neuro Muscles Strength 5/5 in all 4 extremities Sensation to light touch grossly present throughout Cranial nerves II-XII grossly intact Past Medical History Past Medical History: No Reported History History of Any Multi-Drug Resistant Organisms: None Reported Past Surgical History: No Surgical Hx Reported Past Anesthesia/Blood Transfusion Reactions: No Reported Reaction Past Psychological History: No Psychological Hx Reported Smoking Status: Current every day smoker Past Alcohol Use History: Heavy Past Drug Use History: Marijuana Medications and Allergies Home Medications Medication Instructions Recorded Confirmed Type Folic Acid 1 mg PO DAILY tab 04/23/23 Rx Multivitamins, Thera [Multivitamin 1 each PO DAILY tab 04/23/23 Rx (formulary)] Thiamine [Vitamin B-1] 100 mg PO DAILY tab 04/23/23 Rx Allergies Allergy/AdvReac Type Severity Reaction Status Date / Time No Known Allergies Allergy Verified 11/03/23 03:34 Physical Exam Vitals: Vital Signs Temp Pulse Resp BP Pulse Ox 11/03/23 05:00 89 16 136/99 92 L 11/03/23 03:26 97.7 F 98 18 128/96 96 Intake and Output 11/02/23 11/02/23 11/03/23 14:59 22:59 06:59 Other: Weight 58.06 kg Results CBC & Chem 7: 11/03/23 03:51 11/03/23 03:51 Labs: Abnormal Lab Results - Last 24 Hours (Table) 11/03/23 Range/Units 03:51 Chloride 110 H (98-107) mmol/L AST 72 H (17-59) U/L Serum Alcohol 297 H* mg/dL Assessment and Plan Assessment: 43-year-old male with alcohol dependence and abuse coming in for left-sided chest pain I discussed case with ED doctor accepted the admission for atypical chest pain rule out acute coronary syndrome, and acute alcohol intoxication with anticipated length of stay less than 2 midnights Atypical chest pain rule out acute coronary syndrome Aspirin 81 mg daily Troponin negative continue to trend EKG no acute ST changes Chest x-ray no acute cardiopulmonary process Vital signs stable Blood work unremarkable white count 9 hemoglobin 14 sodium 145 potassium 4.7 BUN 11 creatinine 0.6 Liver enzymes unremarkable slightly elevated AST 72 ALT is 46 Cardiology consult Alcohol abuse and dependence Acute alcohol intoxication Serum alcohol level 297 Monitor for alcohol withdrawal syndrome Benzos per CIWA scale Thiamine daily Gentle IV fluid hydration normal saline 75 cc/h Full code DVT prophylaxis heparin subcu 3 times daily
[2023-11-03] MEDS: SODIUM CHLORIDE 0.9% 1,000 ML IV SCH (06:47)
[2023-11-03] MEDS: PANTOPRAZOLE 40 MG TABLET PO SCH (07:51)
[2023-11-03] MEDS: HEPARIN SODIUM,PORCINE 5,000 UNIT/ML 1 ML VIAL SQ SCH (07:52)
[2023-11-03] MEDS: ASPIRIN 81 MG PO SCH (08:31)
[2023-11-03 14:15] LABS: Chol/HDL Ratio 1.94 Ratio; LDL Cholesterol,Calculated 56.6 mg/dL (0.0-131.0); VLDL Calculation 18.68 mg/dL (5.00-40.00)
--- NOTE | 2023-11-03 15:44 | P.CRDCN ---
History of Present Illness Consult date: 11/03/23 Consult reason: chest pain History of present illness: The patient is a 43-year-old male who is currently admitted to the hospital with EtOH abuse. The patient had reported some epigastric discomfort to the ER physician, and therefore cardiology was consulted. At the time of my examination the patient is alert and oriented to self and place. He is mumbling minimal responses, and appears to still be intoxicated. He states he does have some epigastric discomfort initially pointing to the left and then subsequently to the right. He denies any trouble breathing. DIAGNOSTICS: EKG shows sinus mechanism without ST or T wave abnormalities Chest x-ray shows no acute cardiopulmonary process Lab data: WBC 9.3, hemoglobin 14.4, hematocrit 43.5, platelet 296, sodium 145, potassium 4.7, BUN 11, creatinine 0.68, AST 72, ALT 46, triglycerides 93, LDL 56, HDL 79, serum alcohol 297 REVIEW OF SYSTEMS: No fever or chills. No cough or expectoration. No diaphoresis. Patient denies headache, dizziness, blurred vision, double vision. Patient denies any stomach discomfort. No nausea, vomiting. No hematochezia. No hematemesis. Denies any black stools or blood in his stools. Denies dysuria or hematuria. No muscle weakness or numbness. PHYSICAL EXAMINATION: This is a 43-year-old male in no apparent distress at the time of my examination. HEENT: Head is atraumatic, normocephalic. Pupils are equal, round. Sclerae anicteric. Conjunctivae are clear. Mucous membranes of the mouth are moist. Neck is supple. There is no jugular venous distention. No carotid bruit is heard. CHEST EXAMINATION: Lungs are clear to auscultation. No chest wall tenderness is noted on palpation or with deep breathing. HEART EXAMINATION: Heart regular rate and rhythm. S1, S2 heard. No murmurs, gallops or rub. ABDOMEN: Soft, nontender. Bowel sounds are heard. No organomegaly noted. EXTREMITIES: 2+ peripheral pulses with no evidence of peripheral edema and no calf tenderness noted. NEUROLOGIC EXAMINATION: Patient is awake, alert and oriented x2. FINAL ASSESSMENT AND PLAN: Chest discomfort, ACS workup unremarkable Acute alcohol intoxication History of alcohol abuse PLAN: Acute coronary syndrome is ruled out Patient does not have a cardiac history, and therefore there are no home cardiac medications that need to be resumed Recommend cessation from alcohol Thank you kindly for this consultation. No further recommendations from the cardiac standpoint I am dictating on behalf of Dr Dar Osei's history/physical and assessment/plan. Past Medical History Past Medical History: No Reported History History of Any Multi-Drug Resistant Organisms: None Reported Past Surgical History: No Surgical Hx Reported Past Anesthesia/Blood Transfusion Reactions: No Reported Reaction Past Psychological History: No Psychological Hx Reported Smoking Status: Current every day smoker Past Alcohol Use History: Heavy Past Drug Use History: Marijuana Medications and Allergies Home Medications Medication Instructions Recorded Confirmed Type Ergocalciferol [Vitamin D2 (1250 1,250 mcg PO FR 11/03/23 11/03/23 History Mcg = 93937 Iu)] Mirtazapine [Remeron] 30 mg PO HS 11/03/23 11/03/23 History Allergies Allergy/AdvReac Type Severity Reaction Status Date / Time No Known Allergies Allergy Verified 11/03/23 13:43 Physical Exam Vitals: Vital Signs Temp Pulse Resp BP Pulse Ox 11/03/23 15:12 83 14 128/77 94 L 11/03/23 14:00 82 16 107/66 94 L 11/03/23 13:00 109 H 16 121/90 94 L 11/03/23 12:00 80 16 119/79 99 11/03/23 11:00 95 14 129/84 97 11/03/23 10:17 96 18 135/98 93 L 11/03/23 09:06 98 16 97 11/03/23 08:33 95 16 124/88 97 11/03/23 07:52 93 18 127/88 95 11/03/23 06:00 100 16 128/86 96 11/03/23 05:00 89 16 136/99 92 L 11/03/23 03:26 97.7 F 98 18 128/96 96 Intake and Output 11/03/23 11/03/23 11/03/23 06:59 14:59 22:59 Other: Weight 58.06 kg Results 11/03/23 03:51 11/03/23 03:51 Cardiac Enzymes 11/03/23 11/03/23 Range/Units 03:51 03:51 AST 72 H (17-59) U/L Troponin I <0.012 (0.000-0.034) ng/mL Coagulation 11/03/23 Range/Units 03:51 PT 10.0 (10.0-12.5) sec APTT 25.0 (22.0-30.0) sec Lipids 11/03/23 Range/Units 03:51 Triglycerides 93.40 (0.00-149.00) mg/dL Cholesterol 155.00 (0.00-200.00) mg/dL HDL Cholesterol 79.70 H (40.00-60.00) mg/dL Cholesterol/HDL Ratio 1.94 Ratio CBC 11/03/23 Range/Units 03:51 WBC 9.3 (3.8-10.6) k/uL RBC 4.49 (4.30-5.90) m/uL Hgb 14.4 (13.0-17.5) gm/dL Hct 43.5 (39.0-53.0) % Plt Count 296 (150-450) k/uL Comprehensive Metabolic Panel 11/03/23 Range/Units 03:51 Sodium 145 (137-145) mmol/L Potassium 4.7 (3.5-5.1) mmol/L Chloride 110 H (98-107) mmol/L Carbon Dioxide 25 (22-30) mmol/L BUN 11 (9-20) mg/dL Creatinine 0.68 (0.66-1.25) mg/dL Glucose 90 (74-99) mg/dL Calcium 8.6 (8.4-10.2) mg/dL AST 72 H (17-59) U/L ALT 46 (4-49) U/L Alkaline Phosphatase 75 (38-126) U/L Total Protein 7.4 (6.3-8.2) g/dL Albumin 4.5 (3.5-5.0) g/dL Current Medications Generic Name Dose Route Start Last Admin Trade Name Freq PRN Reason Stop Dose Admin Aspirin 81 mg 11/03/23 09:00 11/03/23 08:31 Aspirin 81 Mg PO 81 mg DAILY PATI Administration Heparin Sodium (Porcine) 5,000 unit 11/03/23 08:00 11/03/23 07:52 Heparin Sodium,Porcine 5,000 Unit/Ml 1 Ml Vial SQ 5,000 unit Q8HR PATI Administration Sodium Chloride 1,000 mls @ 75 mls/hr 11/03/23 06:30 11/03/23 06:47 Saline 0.9% IV 75 mls/hr .[id number] PATI Administration Lorazepam 2 mg 11/03/23 03:51 Lorazepam 2 Mg/Ml Inj IV 11/05/23 03:52 Q10M PRN CIWA 16 or higher Lorazepam 1 mg 11/03/23 03:51 Lorazepam 2 Mg/Ml Inj IV Q2HR PRN CIWA 8 or 9 Lorazepam 1 mg 11/03/23 03:51 Lorazepam 2 Mg/Ml Inj IV Q1HR PRN CIWA 10 to 15 Mirtazapine 30 mg 11/03/23 21:00 Mirtazapine 15 Mg Tab PO HS PATI Morphine Sulfate 4 mg 11/03/23 04:44 Morphine Sulfate 4 Mg/Ml Syringe IV Q4HR PRN Severe Pain (Scale 7 to 10) Naloxone HCl 0.2 mg 11/03/23 04:44 Naloxone 0.4 Mg/Ml 1 Ml Vial IV Q2M PRN Opioid Reversal Ondansetron HCl 4 mg 11/03/23 04:44 Ondansetron 4 Mg/2 Ml Vial IVP Q8HR PRN Nausea And Vomiting Pantoprazole Sodium 40 mg 11/03/23 07:30 11/03/23 07:51 Pantoprazole 40 Mg Tablet PO 40 mg AC-BRKFST PATI Administration Intake and Output 11/03/23 11/03/23 11/03/23 06:59 14:59 22:59 Other: Weight 58.06 kg 11/03/23 03:51 11/03/23 03:51
[2023-11-03] MEDS: NICOTINE 21MG/24HR PATCH TRANSDERM SCH (23:22)
[2023-11-03] MEDS: MIRTAZAPINE 15 MG TAB PO SCH (23:22)
[2023-11-04 03:14] VITALS: TEMP 98.2
[2023-11-04] MEDS: MORPHINE SULFATE 4 MG/ML SYRINGE IV PRN (08:22)
[2023-11-04 09:12] VITALS: BP 130/74; PULSE 87; RESP 18
[2023-11-04 09:18] LABS: Basophils # (A) 0.11 X 10*3/uL (0.00-0.10); Basophils % (A) 1.4 %; Eosinophils # (A) 0.16 X 10*3/uL (0.04-0.35); HCT 40.9 % (39.6-50.0); HGB 13.6 g/dL (13.0-17.0); Lymphocytes # (A) 2.78 X 10*3/uL (0.90-5.00); Lymphocytes % (A) 35.6 %; MCH 32.1 pg (27.0-32.0); MCHC 33.3 g/dL (32.0-37.0); MCV 96.5 FL (80.0-97.0); Mean Platelet Volume 11.4 FL (9.5-12.2); Monocytes # (A) 0.87 X 10*3/uL (0.20-1.00); Monocytes % (A) 11.1 %; NRBC Per 100 WBC 0 X 10*3/uL (0.00-0.01); Neutrophils # (A) 3.88 X 10*3/uL (1.80-7.70); Neutrophils % (A) 49.8 %; Platelet Count 193 X 10*3/uL (140-440); RBC 4.24 X 10*6/uL (4.40-5.60); RDW 13.9 % (11.5-14.5); WBC 7.81 X 10*3/uL (4.50-10.00)
--- NOTE | 2023-11-04 11:01 | P.DS ---
Providers Date of admission: 11/03/23 04:45 Expected date of discharge: 11/04/23 Attending physician: Helen Weir MD Consults: 11/03/23 04:44 Consult Physician Routine Consulting Provider: Jeffery Morel Consult Reason/Comments: cp Do you want consulting provider notified?: Yes Primary care physician: Stated None Hospital Course: Discharge Diagnosis: Alcohol induced esophagitis/gastritis Alcohol dependence Alcohol intoxication Transaminitis Hospital Course: 43-year-old male with history of alcohol dependence presenting for chest pain and alcohol intoxication. Vital signs have been within normal limits. Patient saturating well on room air. Laboratory workup unremarkable except for mildly elevated AST at 72, troponin negative, proBNP negative, serum alcohol level 297. EKG shows sinus rhythm. Chest x-ray showed no acute process. Cardiology was consulted. Recommended alcohol cessation, no further interventions. Chest pain likely noncardiac in nature possibly GERD versus esophagitis in the setting of alcohol use. Follow-up outpatient with PCP. Patient seen and examined at bedside. Vital signs reviewed and stable. General: Nontoxic, no distress, appears at stated age Derm: Warm, dry Head: Atraumatic, normocephalic, symmetric Eyes: EOMI, no lid lag, anicteric sclera Mouth: No lip lesion, mucus membranes moist Cardiovascular: S1S2 reg, no murmur Lungs: CTA bilateral, no rhonchi, no rales, no accessory muscle use Abdominal: Soft, nontender to palpation, no guarding, no appreciable organomegaly Ext: No gross muscle atrophy, no edema, no contractures Neuro: CN II-XI grossly intact, no focal neuro deficits Psych: Alert, oriented, appropriate affect A total of 33 minutes of time were spent preparing this complex discharge summary. Patient was discharged on 11/04/2023 at 943. Patient Condition at Discharge: Stable Plan - Discharge Summary Discharge Rx Participant: No New Discharge Prescriptions: New Pantoprazole [Protonix] 40 mg PO AC-BRKFST #90 tab Thiamine [Vitamin B-1] 100 mg PO DAILY #90 tablet Continue Mirtazapine [Remeron] 30 mg PO HS Ergocalciferol [Vitamin D2 (1250 Mcg = 24087 Iu)] 1,250 mcg PO FR Discharge Medication List Ergocalciferol [Vitamin D2 (1250 Mcg = 91075 Iu)] 1,250 mcg PO FR 11/03/23 [History] Mirtazapine [Remeron] 30 mg PO HS 11/03/23 [History] Pantoprazole [Protonix] 40 mg PO AC-BRKFST #90 tab 11/04/23 [Rx] Thiamine [Vitamin B-1] 100 mg PO DAILY #90 tablet 11/04/23 [Rx] Follow up Appointment(s)/Referral(s): Mary Fallon MD [REFERRING] - 1 Week (please call and make follow up appt. office closed) Patient Instructions/Handouts: Chest Pain (DC), Alcohol Intoxication (DC) Activity/Diet/Wound Care/Special Instructions: Please see a PCP. Discharge/Stand Alone Forms: AA Meetings Dist [facility] 24 - [facility], AA Meetings [facility] Discharge Disposition: HOME SELF-CARE
[2023-11-04 11:09] LABS: ALT 70 U/L (10-49); AST 90 U/L (14-35); Alkaline Phosphatase 73 U/L (41-126); BUN/Creat Ratio 9.62 Ratio (12.00-20.00); Blood Urea Nitrogen 7.7 mg/dL (9.0-27.0); Carbon Dioxide 25.2 mmol/L (21.6-31.8); Chloride 103 mmol/L (96-109); Globulin 2.5 g/dL (1.6-3.3); Glucose 74 mg/dL (70-110); Phosphorus 3.1 mg/dL (2.4-5.1); Potassium 4.2 mmol/L (3.5-5.5); Sodium 142 mmol/L (135-145); Total Bilirubin 0.4 mg/dL (0.3-1.2); Total Protein 6.5 g/dL (6.2-8.2)
== END 2023-11-04 11:30 | disposition home or self-care (01) ==
LOC: EC 03:25 → 6NMEDSUR 04:45
PROVIDERS: ADMIT Internal Medicine; ATTEND Internal Medicine
DX: R07.89 Other chest pain (principal); F10.229 Alcohol dependence with intoxication, unspecified; K29.20 Alcoholic gastritis without bleeding; K20.80 Other esophagitis without bleeding; R74.01 Elevation of levels of liver transaminase levels; Y90.8 Blood alcohol level of 240 mg/100 ml or more; F17.200 Nicotine dependence, unspecified, uncomplicated; Z79.82 Long term (current) use of aspirin; Z98.890 Other specified postprocedural states
CPT/HCPCS: 96376; 96361 ×3; 96372 ×3; 96374; 96375; 99285; 36415; 94760; 93005; 83880; 80061; 80053 ×2; 83690; 83735 ×2; 84100; 84484; 85025 ×2; 85610; 85730; 71045; G0378 ×2; G0480; S4990 ×2; J2270 ×2; J1644 ×2; J2405; 80320

== ENCOUNTER 2024-02-10 01:09 | Emergency (ER) | payer OTHER ==
--- NOTE | 2024-02-10 01:44 | ED ---
Alcohol HPI - General Source: patient, RN notes reviewed Mode of arrival: ambulatory Limitations: no limitations <Art Monahan - Last Filed: 02/10/24 01:44> <Cordell Germain - Last Filed: 02/10/24 22:04> - General Chief Complaint: Alcohol Stated Complaint: ETOH Time Seen by Provider: 02/10/24 01:35 - History of Present Illness Initial Comments: Quicknote 44-year-old male presenting to the ED with complaints of alcohol withdrawal. Patient reports that he typically drinks 1/5 of liquor a day. States his last drink was earlier today. Reports that he has had 3 beers. Currently denies headache, nausea, vomiting. (Art Monahan) Patient is a 44-year-old male presenting with acute alcohol intoxication. Patient admits to excessive alcohol consumption. No physical complaints cu rrently. (Codrell Germain) - Related Data Home Medications Medication Instructions Recorded Confirmed Ergocalciferol [Vitamin D2 (1250 1,250 mcg PO FR 11/03/23 11/03/23 Mcg = 01590 Iu)] Mirtazapine [Remeron] 30 mg PO HS 11/03/23 11/03/23 Previous Rx's Medication Instructions Recorded Pantoprazole [Protonix] 40 mg PO AC-BRKFST #90 tab 11/04/23 Thiamine [Vitamin B-1] 100 mg PO DAILY #90 tablet 11/04/23 Allergies Allergy/AdvReac Type Severity Reaction Status Date / Time No Known Allergies Allergy Verified 02/10/24 01:16 Review of Systems ROS Other: All systems not noted in ROS Statement are negative. <Art Monahan - Last Filed: 02/10/24 01:44> ROS Other: All systems not noted in ROS Statement are negative. <Cordell Germain - Last Filed: 02/10/24 22:04> ROS Statement: Those systems with pertinent positive or pertinent negative responses have been documented in the HPI. Past Medical History Past Medical History: No Reported History History of Any Multi-Drug Resistant Organisms: None Reported Past Surgical History: No Surgical Hx Reported Past Anesthesia/Blood Transfusion Reactions: No Reported Reaction Past Psychological History: No Psychological Hx Reported Smoking Status: Current every day smoker Past Alcohol Use History: Abuse, Daily, Heavy Past Drug Use History: Marijuana <Art Monahan - Last Filed: 02/10/24 01:44> General Exam Limitations: no limitations <Art Monahan - Last Filed: 02/10/24 01:44> General appearance: alert, appears intoxicated Head exam: Present: atraumatic, normocephalic Eye exam: Present: normal appearance, PERRL ENT exam: Present: normal exam Neck exam: Present: normal inspection. Absent: tenderness, meningismus Respiratory exam: Present: normal lung sounds bilaterally. Absent: respiratory distress, wheezes Cardiovascular Exam: Present: regular rate, normal rhythm GI/Abdominal exam: Present: soft. Absent: distended, tenderness, guarding Extremities exam: Present: normal inspection, normal capillary refill. Absent: pedal edema Neurological exam: Present: alert, oriented X3 Psychiatric exam: Present: normal affect, normal mood Skin exam: Present: warm, dry, intact. Absent: cyanosis, diaphoretic <Cordell Germain - Last Filed: 02/10/24 22:04> - General Exam Comments Initial Comments: Visual Physical Exam Vital signs reviewed General: Well-appearing, nontoxic, no acute distress. Head: Normocephalic, atraumatic Eyes: PERRLA, EOMI ENT: Airway patent Chest: Nonlabored breathing Skin: No visual rash, normal skin tone Neuro: Alert and oriented 3 Musculoskeletal: No gross abnormalities (Art Monahan) Course Vital Signs 02/10/24 02/10/24 02/10/24 01:15 10:05 12:15 Temperature 98.1 F Pulse Rate 98 89 99 Respiratory 18 18 16 Rate Blood Pressure 131/97 134/84 134/82 O2 Sat by Pulse 96 97 Oximetry Medical Decision Making <Art Monahan - Last Filed: 02/10/24 01:44> - Lab Data Result diagrams: 02/10/24 03:00 02/10/24 03:00 <Cordell Germain - Last Filed: 02/10/24 22:04> - Medical Decision Making Quicknote portion performed. Signed Art Monahan PA-C (Art Monahan) Was pt. sent in by a medical professional or institution ([facility] Robertson, [employer], urgent care, hospital, or group home...) When possible be specific @ -No Did you speak to anyone other than the patient for history (EMS, parent, family, police, friend...)? What history was obtained from this source @ -No Did you review nursing and triage notes (agree or disagree)? Why? @ -I reviewed and agree with nursing and triage notes Were old charts reviewed (outside hosp., previous admission, EMS record, old EKG, old radiological studies, urgent care reports/EKG's, group home records)? Report findings @ -No old charts were reviewed Differential Diagnosis (chest pain, altered mental status, abdominal pain women, abdominal pain men, vaginal bleeding, weakness, fever, dyspnea, syncope, headache, dizziness, GI bleed, back pain, seizure, CVA, palpatations, mental health, musculoskeletal)? @ -Not applicable EKG interpreted by me (3pts min.). @ -As above X-rays interpreted by me (1pt min.). @ -None done CT interpreted by me (1pt min.). @ -None done U/S interpreted by me (1pt. min.). @ -None done What testing was considered but not performed or refused? (CT, X-rays, U/S, labs)? Why? @ -None What meds were considered but not given or refused? Why? @ -None Did you discuss the management of the patient with other professionals (professionals i.e. , PA, [employer], lab, RT, psych nurse, high school social studies tutor, hoop riveting machine operator, teacher, chief security officer, medical case manager)? Give summary @ -No Was smoking cessation discussed for >3mins.? @ -No Was critical care preformed (if so, how long)? @ -No Were there social determinants of health that impacted care today? How? (Homelessness, low income, unemployed, alcoholism, drug addiction, transportation, low edu. Level, literacy, decrease access to med. care, fdc, rehab)? @ -No Was there de-escalation of care discussed even if they declined (Discuss DNR or withdrawal of care, Hospice)? DNR status @ -No What co-morbidities impacted this encounter? (DM, HTN, Smoking, COPD, CAD, Cancer, CVA, ARF, Chemo, Hep., AIDS, mental health diagnosis, sleep apnea, morbid obesity)? @ -None Was patient admitted / discharged? Hospital course, mention meds given and route, prescriptions, significant lab abnormalities, going to OR and other per tinent info. @ -44-year-old male brought in with alcohol intoxication. Brought in by police for being intoxicated in public. Patient has no physical complaints. He is intoxicated but has steady gait. Patient was seen initially as a quick note and laboratory testing was performed which shows normal CBC, normal CMP, alcohol level 350. Patient observed in the emergency department with stable vitals, alert and oriented, able to answer questions. We did contact family who are able to pick the patient up. Patient discharged in stable condition with family. Undiagnosed new problem with uncertain prognosis? @ -No Drug Therapy requiring intensive monitoring for toxicity (Heparin, Nitro, Insu merlin, Cardizem)? @ -No Were any procedures done? @ -No Diagnosis/symptom? @ -Alcohol intoxication Acute, or Chronic, or Acute on Chronic? @ -Acute on chronic Uncomplicated (without systemic symptoms) or Complicated (systemic symptoms)? @ -Default Side effects of treatment? @ -No Exacerbation, Progression, or Severe Exacerbation? @ -No Poses a threat to life or bodily function? How? (Chest pain, [place], [place], pneumonia, PE, COPD, DKA, ARF, appy, cholecystitis, CVA, Diverticulitis, Homicidal, Julia cidal, threat to staff... and all critical care pts) @Low risk at this time (Cordell Germain) - Lab Data Lab Results 02/10/24 02/10/24 02/10/24 Range/Units 02:18 03:00 03:00 WBC 10.5 (3.8-10.6) k/uL RBC 4.51 (4.30-5.90) m/uL Hgb 14.7 (13.0-17.5) gm/dL Hct 45.8 (39.0-53.0) % MCV 101.6 H (80.0-100.0) fL MCH 32.6 (25.0-35.0) pg MCHC 32.1 (31.0-37.0) g/dL RDW 14.8 (11.5-15.5) % Plt Count 282 (150-450) k/uL MPV 8.1 Neutrophils % 59 % Lymphocytes % 30 % Monocytes % 6 % Eosinophils % 2 % Basophils % 1 % Neutrophils # 6.1 (1.3-7.7) k/uL Lymphocytes # 3.1 (1.0-4.8) k/uL Monocytes # 0.6 (0-1.0) k/uL Eosinophils # 0.2 (0-0.7) k/uL Basophils # 0.1 (0-0.2) k/uL Macrocytosis Slight Sodium 144 (137-145) mmol/L Potassium 4.5 (3.5-5.1) mmol/L Chloride 112 H (98-107) mmol/L Carbon Dioxide 20 L (22-30) mmol/L Anion Gap 12 mmol/L BUN 5 L (9-20) mg/dL Creatinine 0.84 (0.66-1.25) mg/dL Est GFR (CKD-EPI)AfAm >90 (>60 ml/min/1.73 sqM) Est GFR (CKD-EPI)NonAf >90 (>60 ml/min/1.73 sqM) Glucose 74 (74-99) mg/dL Calcium 9.3 (8.4-10.2) mg/dL Total Bilirubin 0.6 (0.2-1.3) mg/dL AST 46 (17-59) U/L ALT 48 (4-49) U/L Alkaline Phosphatase 72 (38-126) U/L Total Protein 8.2 (6.3-8.2) g/dL Albumin 5.0 (3.5-5.0) g/dL Urine Color Colorless Urine Appearance Clear (Clear) Urine pH 5.0 (5.0-8.0) Ur Specific [place] 1.005 (1.001-1.035) Urine Protein Negative (Negative) Urine Glucose (UA) Negative (Negative) Urine Ketones Negative (Negative) Urine Blood Negative (Negative) Urine Nitrite Negative (Negative) Urine Bilirubin Negative (Negative) Urine Urobilinogen <2.0 (<2.0) mg/dL Ur Leukocyte Esterase Negative (Negative) Serum Alcohol 350 H* mg/dL Disposition <Art Monahan - Last Filed: 02/10/24 01:44> Is patient prescribed a controlled substance at d/c from ED?: No Time of Disposition: 12:15 <Cordell Germain - Last Filed: 02/10/24 22:04> Clinical Impression: Alcoholic intoxication Disposition: HOME SELF-CARE Condition: Fair Instructions (If sedation given, give patient instructions): Alcohol Intoxication (ED) Referrals: None,Stated [REFERRING] - 1-2 days
[2024-02-10 02:03] VITALS: TEMP 98.1
[2024-02-10 03:18] LABS: Appearance,Urine Clear (Clear); Bilirubin,Urine Negative (Negative); Blood,Urine Negative (Negative); Color,Urine Colorless; Glucose,Urine (UA) Negative (Negative); Ketones,Urine Negative (Negative); Leukocyte Esterase,Urine Negative (Negative); Nitrite,Urine Negative (Negative); Protein,Urine Negative (Negative); Specific Gravity,Urine 1.005 (1.001-1.035); Urobilinogen,Urine <2.0 mg/dL (<2.0)
[2024-02-10 04:00] LABS: Basophils # (A) 0.1 k/uL (0-0.2); Basophils % (A) 1 %; Eosinophils # (A) 0.2 k/uL (0-0.7); Eosinophils % (A) 2 %; HCT 45.8 % (39.0-53.0); HGB 14.7 gm/dL (13.0-17.5); Lymphocytes # (A) 3.1 k/uL (1.0-4.8); Lymphocytes % (A) 30 %; MCH 32.6 pg (25.0-35.0); MCHC 32.1 g/dL (31.0-37.0); MCV 101.6 fL (80.0-100.0); Macrocytosis Slight; Mean Platelet Volume 8.1; Monocytes # (A) 0.6 k/uL (0-1.0); Monocytes % (A) 6 %; Neutrophils # (A) 6.1 k/uL (1.3-7.7); Neutrophils % (A) 59 %; Platelet Count 282 k/uL (150-450); RBC 4.51 m/uL (4.30-5.90); RDW 14.8 % (11.5-15.5); WBC 10.5 k/uL (3.8-10.6)
[2024-02-10 04:35] LABS: ALT 48 U/L (4-49); AST 46 U/L (17-59); African American GFR (CKD) >90 (>60 ml/min/1.73 sqM); Alkaline Phosphatase 72 U/L (38-126); Anion Gap 12 mmol/L; Blood Urea Nitrogen 5 mg/dL (9-20); Calcium 9.3 mg/dL (8.4-10.2); Carbon Dioxide 20 mmol/L (22-30); Chloride 112 mmol/L (98-107); Glucose 74 mg/dL (74-99); Non-African American GFR(CKD) >90 (>60 ml/min/1.73 sqM); Potassium 4.5 mmol/L (3.5-5.1); Sodium 144 mmol/L (137-145); Total Bilirubin 0.6 mg/dL (0.2-1.3); Total Protein 8.2 g/dL (6.3-8.2)
[2024-02-10 04:49] LABS: Alcohol 350 mg/dL
[2024-02-10 12:35] VITALS: BP 134/82; PULSE 99; RESP 16
== END 2024-02-10 12:16 | disposition home or self-care (01) ==
LOC: EC 01:09
DX: F10.129 Alcohol abuse with intoxication, unspecified (principal); F17.200 Nicotine dependence, unspecified, uncomplicated; F12.90 Cannabis use, unspecified, uncomplicated; Y90.8 Blood alcohol level of 240 mg/100 ml or more
CPT/HCPCS: 36415; 80053; 80320; 81003; 82075; 85025; 99284

== ENCOUNTER 2024-03-09 21:38 | Observation (INO) | payer OTHER ==
--- NOTE | 2024-03-09 21:55 | ED ---
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 Previous Visits for Alcohol Intoxication?: Yes Recent Trauma: No Associated Symptoms: denies other symptoms Treatments Prior to Arrival: none Chronic Alcohol Use: Yes - Related Data Home Medications Medication Instructions Recorded Confirmed Ergocalciferol [Vitamin D2 (1250 1,250 mcg PO FR 11/03/23 11/03/23 Mcg = 57007 Iu)] Mirtazapine [Remeron] 30 mg PO HS 11/03/23 11/03/23 Previous Rx's Medication Instructions Recorded Pantoprazole [Protonix] 40 mg PO AC-BRKFST #90 tab 11/04/23 Thiamine [Vitamin B-1] 100 mg PO DAILY #90 tablet 11/04/23 Allergies Allergy/AdvReac Type Severity Reaction Status Date / Time No Known Allergies Allergy Verified 02/10/24 01:16 Review of Systems ROS Statement: Those systems with pertinent positive or pertinent negative responses have been documented in the HPI. ROS Other: All systems not noted in ROS Statement are negative. Constitutional: Denies: fever, weakness Respiratory: Denies: cough, dyspnea Cardiovascular: Denies: chest pain, palpitations, edema Gastrointestinal: Denies: abdominal pain, vomiting, diarrhea Genitourinary: Denies: dysuria, hematuria Musculoskeletal: Denies: back pain Skin: Denies: rash Neurological: Denies: headache, weakness Psychiatric: Reports: anxiety. Denies: homicidal thoughts, suicidal thoughts Past Medical History Past Medical History: No Reported History History of Any Multi-Drug Resistant Organisms: None Reported Past Surgical History: No Surgical Hx Reported Past Anesthesia/Blood Transfusion Reactions: No Reported Reaction Past Psychological History: No Psychological Hx Reported Smoking Status: Current every day smoker Past Alcohol Use History: Abuse, Daily, Heavy Past Drug Use History: Marijuana General Exam Limitations: no limitations General appearance: alert, in no apparent distress Head exam: Present: atraumatic, normocephalic Eye exam: Present: normal appearance. Absent: scleral icterus, conjunctival injection ENT exam: Present: normal oropharynx Neck exam: Present: normal inspection Respiratory exam: Present: normal lung sounds bilaterally. Absent: respiratory distress, wheezes, rales, rhonchi, stridor Cardiovascular Exam: Present: regular rate, normal rhythm, normal heart sounds. Absent: systolic murmur, diastolic murmur, rubs, gallop GI/Abdominal exam: Present: soft. Absent: distended, tenderness, guarding, rebound, rigid Extremities exam: Present: normal inspection, normal capillary refill Back exam: Present: normal inspection. Absent: CVA tenderness (R), CVA tenderness (L) Neurological exam: Present: alert Skin exam: Present: warm, dry, intact, normal color. Absent: rash Course Vital Signs 03/09/24 21:41 Temperature 97.6 F Pulse Rate 92 Respiratory 16 Rate Blood Pressure 130/99 O2 Sat by Pulse 96 Oximetry Disposition Referrals: Cordell Galvez MD [Primary Care Provider] - 1-2 days
[2024-03-09] MEDS: LORazepam 2 MG/ML INJ IV STA (22:10)
[2024-03-09] MEDS: NICOTINE 14MG/24HR PATCH TRANSDERM STA (22:10)
[2024-03-09 22:47] LABS: African American GFR (CKD) >90 (>60 ml/min/1.73 sqM); Albumin 5.1 g/dL (3.5-5.0); Anion Gap 12 mmol/L; Glucose 79 mg/dL (74-99); Non-African American GFR(CKD) >90 (>60 ml/min/1.73 sqM); Total Bilirubin 0.4 mg/dL (0.2-1.3); Total Protein 8.3 g/dL (6.3-8.2)
[2024-03-09 22:56] LABS: ALT 85 U/L (4-49); AST 92 U/L (17-59); Alkaline Phosphatase 65 U/L (38-126); Blood Urea Nitrogen 7 mg/dL (9-20); Calcium 9.8 mg/dL (8.4-10.2); Carbon Dioxide 21 mmol/L (22-30); Chloride 113 mmol/L (98-107); Potassium 4.4 mmol/L (3.5-5.1); Sodium 146 mmol/L (137-145)
[2024-03-09 23:08] LABS: Basophils # (A) 0.1 k/uL (0-0.2); Basophils % (A) 1 %; Eosinophils # (A) 0.2 k/uL (0-0.7); Eosinophils % (A) 2 %; HGB 15.1 gm/dL (13.0-17.5); Lymphocytes # (A) 2.7 k/uL (1.0-4.8); Lymphocytes % (A) 32 %; MCH 33.4 pg (25.0-35.0); MCHC 32.2 g/dL (31.0-37.0); MCV 103.4 fL (80.0-100.0); Macrocytosis Slight; Mean Platelet Volume 8.1; Monocytes # (A) 0.8 k/uL (0-1.0); Monocytes % (A) 9 %; Neutrophils # (A) 4.5 k/uL (1.3-7.7); Neutrophils % (A) 53 %; Platelet Count 271 k/uL (150-450); RBC 4.54 m/uL (4.30-5.90); RDW 14.1 % (11.5-15.5); WBC 8.6 k/uL (3.8-10.6)
[2024-03-09 23:25] LABS: Alcohol 401 mg/dL
[2024-03-10] MEDS ORDERED: NALOXONE 0.4 MG/ML 1 ML VIAL IV PRN (00:02)
[2024-03-10] MEDS ORDERED: MAG HYDROX/AL HYDROX/SIMETH 30 ML CUP PO PRN (00:02)
[2024-03-10] MEDS ORDERED: LORazepam 2 MG/ML INJ IV PRN ×2 (00:05)
[2024-03-10] MEDS: THIAMINE 100 MG/ML 2 ML VIAL IM STA (02:03)
[2024-03-10] MEDS: LORazepam 2 MG/ML INJ IV PRN (07:43)
[2024-03-10] MEDS: FAMOTIDINE 20 MG TAB PO SCH (08:20)
[2024-03-10] MEDS: ENOXAPARIN 40 MG/0.4 ML SYRINGE SQ SCH (11:17)
[2024-03-10] MEDS: NICOTINE 21MG/24HR PATCH TRANSDERM SCH ×2 (11:17→22:54)
[2024-03-10] MEDS: diazePAM 2 MG TAB PO SCH (11:17)
--- NOTE | 2024-03-10 17:05 | P.HPIM ---
History of Present Illness H&P Date: 03/10/24 Chief Complaint: Wanted to stop alcohol This is a 44-year-old patient follows with Dr. Cordell Galvez. Has no known medical diagnoses with no medications. This is different peoples. Patient been drinking excessive alcohol for close to 23 years. Used to drink 1/5 a day. Has decreased the last 5 years. Wanting to stop alcohol intake. Decided to come to the ER. Patient last drink was yesterday. Alcohol on presentation was 401. Liver function slightly off. Patient does want to stop drinking. Anxious. Denies any nausea or vomiting. Denies any abdominal pain. No fever no chills. Patient on CIWA scale. Apparently patient's tried rehab previously. Review of systems: GEN.: Tired EYES: None HEENT: None NECK: None RESPIRATORY: None CARDIOVASCULAR: None GASTROINTESTINAL: None GENITOURINARY: None MUSCULOSKELETAL: None LYMPHATICS: None HEMATOLOGICAL: None PSYCHIATRY: [Anxious NEUROLOGICAL: Some trouble sleeping Social history: Patient been smoking for long time. Was smoking 1 pack a day. Now lately doing 2 packs a day. Drinking alcohol for last 22 years. Used to do 1/5 a day. No lesser amounts. Patient does have a job. Physical examination: VITAL SIGNS: 98.7, 82, 15, 135/87, 97% room air GENERAL: [BMI 21, laying in bed eating some food, anxious. EYES: Pupils equal. Conjunctiva audelia l. HEENT: External appearance of nose and ears normal, oral cavity grossly normal. NECK: JVD not raised; masses not palpable. HEART: First and second heart sounds are normal; no edema. LUNGS: Respiratory rate normal; clear to auscultation. ABDOMEN: Soft, nontender, liver spleen not palpable, no masses palpable. PSYCH: Alert and oriented x3; mood and affect l. MUSCULOSKELETAL:No Clubbing/cyanosis;muscles-grossly intact NEUROLOGICAL: Cranial nerves grossly intact; no facial asymmetry, power and sensation grossly intact. LYMPHATICS: No lymph nodes palpable in the axilla and neck INVESTIGATIONS, reviewed in the clinical context: March 09: White count 8.6 hemoglobin 15.1 platelets 271 sodium 146 potassium 4.4 bicarb 21 BUN 7 creatinine 0.64 AST 92 ALT 85 serum alcohol 4 1 Assessment plan: -Impending DTs. Patient last drink was yesterday. Alcohol was 401 around 10 PM yesterday. Will start the patient on Valium 2 mg 3 times daily. As patient is likely to go into withdrawals. CIWA scale in place. -Alcohol use disorder Thiamine. Add multivitamin -Chronic nicotine dependence cigarette smoker Nicotine patch -Alcoholic hepatitis Outpatient follow-up with Dr. 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 He will be given options about detox places. CIWA scale. Watch for DTs. Past Medical History Past Medical History: No Reported History History of Any Multi-Drug Resistant Organisms: None Reported Past Surgical History: No Surgical Hx Reported Past Anesthesia/Blood Transfusion Reactions: No Reported Reaction Past Psychological History: No Psychological Hx Reported Smoking Status: Current every day smoker Past Alcohol Use History: Abuse, Daily, Heavy Past Drug Use History: Marijuana Medications and Allergies Home Medications Medication Instructions Recorded Confirmed Type No Known Home Medications 03/10/24 03/10/24 History Allergies Allergy/AdvReac Type Severity Reaction Status Date / Time No Known Allergies Allergy Verified 03/10/24 07:43 Physical Exam Vitals: Vital Signs Temp Pulse Pulse Resp BP BP Pulse Ox 03/10/24 08:00 88 16 03/10/24 07:19 98.4 F 84 17 105/64 93 L 03/10/24 02:00 98.2 F 78 16 95/60 96 03/10/24 01:10 97.8 F 88 18 100/72 98 03/10/24 00:00 92 18 104/79 98 03/09/24 21:41 97.6 F 92 16 130/99 96 Intake and Output 03/09/24 03/10/24 03/10/24 22:59 06:59 14:59 Other: Voiding Method Toilet # Voids 0 Weight 58.967 kg 58.967 kg Results CBC & Chem 7: 03/09/24 22:00 03/09/24 22:00 Labs: Abnormal Lab Results - Last 24 Hours (Table) 03/09/24 03/09/24 Range/Units 22:00 22:00 MCV 103.4 H (80.0-100.0) fL Sodium 146 H (137-145) mmol/L Chloride 113 H (98-107) mmol/L Carbon Dioxide 21 L (22-30) mmol/L BUN 7 L (9-20) mg/dL Creatinine 0.64 L (0.66-1.25) mg/dL AST 92 H (17-59) U/L ALT 85 H (4-49) U/L Total Protein 8.3 H (6.3-8.2) g/dL Albumin 5.1 H (3.5-5.0) g/dL Serum Alcohol 401 H* mg/dL
[2024-03-10] MEDS: MULTIVITAMINS, THERA 1 EACH TAB PO SCH (17:51)
[2024-03-11] MEDS: THIAMINE 100 MG TAB PO SCH (08:27)
[2024-03-11] MEDS: diazePAM 2 MG TAB PO SCH (16:06)
--- NOTE | 2024-03-11 18:39 | P.PN ---
Progress Note - Text Progress Note Date: 03/11/24 Chief Complaint: Wanted to stop alcohol This is a 44-year-old patient follows with Dr. Cordell Galvez. Has no known medical diagnoses with no medications. This is different peoples. Patient been drinking excessive alcohol for close to 23 years. Used to drink 1/5 a day. Has decreased the last 5 years. Wanting to stop alcohol intake. Decided to come to the ER. Patient last drink was yesterday. Alcohol on presentation was 401. Liver function slightly off. Patient does want to stop drinking. Anxious. Denies any nausea or vomiting. Denies any abdominal pain. No fever no chills. Patient on CIWA scale. Apparently patient's tried rehab previously. March 11: Some tremors. Eating better. Cut back Valium to 1 mg 3 times daily. Discussed with patient. He is deciding between going to rehab place versus going home. He is concerned about his job. Patient told to ambulate in the hallway. Looking to be discharged tomorrow. Active Medications Al Hydroxide/Mg Hydroxide (Mag Hydrox/Al Hydrox/Simeth 30 Ml Cup) 15 ml PO Q6HR PRN PRN Reason: Indigestion Diazepam (Diazepam 2 Mg Tab) 1 mg PO TID [facility] Stop: 03/11/24 22:01 Last Admin: 03/11/24 16:06 Dose: 1 mg Enoxaparin Sodium (Enoxaparin 40 Mg/0.4 Ml Syringe) 40 mg SQ DAILY [facility] Last Admin: 03/11/24 08:27 Dose: 40 mg Famotidine (Famotidine 20 Mg Tab) 20 mg PO BID [facility] Last Admin: 03/11/24 08:27 Dose: 20 mg Lorazepam (Lorazepam 2 Mg/Ml Inj) 2 mg IV Q10M PRN PRN Reason: CIWA 16 or higher Stop: 03/12/24 00:06 Lorazepam (Lorazepam 2 Mg/Ml Inj) 1 mg IV Q2HR PRN PRN Reason: CIWA 8 or 9 Last Admin: 03/10/24 07:43 Dose: 1 mg Lorazepam (Lorazepam 2 Mg/Ml Inj) 1 mg IV Q1HR PRN PRN Reason: CIWA 10 to 15 Multivitamins (Multivitamins, Thera 1 Each Tab) 1 each PO DAILY [facility] Last Admin: 03/11/24 08:27 Dose: 1 each Naloxone HCl (Naloxone 0.4 Mg/Ml 1 Ml Vial) 0.2 mg IV Q2M PRN PRN Reason: Opioid Reversal Nicotine (Nicotine 21mg/24hr Patch) 1 patch TRANSDERM HS [facility] Last Admin: 03/10/24 22:54 Dose: 1 patch Thiamine HCl (Thiamine 100 Mg Tab) 100 mg PO DAILY [facility] Last Admin: 03/11/24 08:27 Dose: 100 mg Social history: Patient been smoking for long time. Was smoking 1 pack a day. Now lately doing 2 packs a day. Drinking alcohol for last 22 years. Used to do 1/5 a day. No lesser amounts. Patient does have a job. Physical examination: VITAL SIGNS: 98.8, 78, 18, 120/88, 99% room air GENERAL: Laying in bed comfortable EYES: Pupils equal. Conjunctiva audelia l. HEENT: External appearance of nose and ears normal, oral cavity grossly normal. NECK: JVD not raised; masses not palpable. HEART: First and second heart sounds are normal; no edema. LUNGS: Respiratory rate normal; clear to auscultation. ABDOMEN: Soft, nontender, liver spleen not palpable, no masses palpable. PSYCH: Alert and oriented x3; mood and affect l. MUSCULOSKELETAL:No Clubbing/cyanosis;muscles-grossly intact NEUROLOGICAL: Cranial nerves grossly intact; no facial asymmetry, power and sensation grossly intact. Mild tremor Telemetry INVESTIGATIONS, reviewed in the clinical context: March 09: White count 8.6 hemoglobin 15.1 platelets 271 sodium 146 potassium 4.4 bicarb 21 BUN 7 creatinine 0.64 AST 92 ALT 85 serum alcohol 4 1 Assessment plan: -Early alcohol withdrawal syndrome Valium 2 mg 3 times daily. Decreased to 1 mg 3 times daily. -Alcohol use disorder Thiamine. Add multivitamin -Chronic nicotine dependence cigarette smoker Nicotine patch -Alcoholic hepatitis Outpatient follow-up with Dr. Valentin Darby Discussed with patient. Probably discharge tomorrow. Past Medical History Past Medical History: No Reported History History of Any Multi-Drug Resistant Organisms: None Reported Past Surgical History: No Surgical Hx Reported Past Anesthesia/Blood Transfusion Reactions: No Reported Reaction Past Psychological History: No Psychological Hx Reported Smoking Status: Current every day smoker Past Alcohol Use History: Abuse, Daily, Heavy Past Drug Use History: Marijuana
[2024-03-12 07:24] VITALS: BP 134/94; PULSE 70; RESP 16; TEMP 97.9
[2024-03-12 07:49] LABS: ALT 66 U/L (4-49); AST 66 U/L (17-59); African American GFR (CKD) >90 (>60 ml/min/1.73 sqM); Albumin 4.5 g/dL (3.5-5.0); Albumin/Globulin Ratio 1.5; Alkaline Phosphatase 64 U/L (38-126); Anion Gap 4 mmol/L; Blood Urea Nitrogen 11 mg/dL (9-20); Carbon Dioxide 26 mmol/L (22-30); Chloride 107 mmol/L (98-107); Glucose 81 mg/dL (74-99); Non-African American GFR(CKD) >90 (>60 ml/min/1.73 sqM); Potassium 4.3 mmol/L (3.5-5.1); Sodium 137 mmol/L (137-145); Total Bilirubin 1.4 mg/dL (0.2-1.3); Total Protein 7.5 g/dL (6.3-8.2)
--- NOTE | 2024-03-12 15:57 | P.DS ---
Providers Date of admission: 03/10/24 00:02 Expected date of discharge: 03/12/24 Attending physician: Clyde Craig Primary care physician: Cordell Galvez [facility] Course: Chief Complaint: Wanted to stop alcohol This is a 44-year-old patient follows with Dr. Cordell Galvez. Has no known medical diagnoses with no medications. This is different peoples. Patient been drinking excessive alcohol for close to 23 years. Used to drink 1/5 a day. Has decreased the last 5 years. Wanting to stop alcohol intake. Decided to come to the ER. Patient last drink was yesterday. Alcohol on presentation was 401. Liver function slightly off. Patient does want to stop drinking. Anxious. Denies any nausea or vomiting. Denies any abdominal pain. No fever no chills. Patient on CIWA scale. Apparently patient's tried rehab previously. March 11: Some tremors. Eating better. Cut back Valium to 1 mg 3 times daily. Discussed with patient. He is deciding between going to rehab place versus going home. He is concerned about his job. Patient told to ambulate in the hallway. Looking to be discharged tomorrow. March 12: Doing better. Received last dose of Valium last night. Lengthy discussion with the patient about different lifestyle changes. Will do charge of naltrexone. He is seeking out family help also. May go into alcohol rehab. Questions answered. Follow-up with Dr. Valentin Darby upon discharge. Discussion and discharge planning more than 35 minutes Social history: Patient been smoking for long time. Was smoking 1 pack a day. Now lately doing 2 packs a day. Drinking alcohol for last 22 years. Used to do 1/5 a day. No lesser amounts. Patient does have a job. Physical examination: VITAL SIGNS: 97.9, 70, 16, 134/94, 100% room air GENERAL: Sitting up comfortable EYES: Pupils equal. Conjunctiva audelia l. HEENT: External appearance of nose and ears normal, oral cavity grossly normal. NECK: JVD not raised; masses not palpable. HEART: First and second heart sounds are normal; no edema. LUNGS: Respiratory rate normal; clear to auscultation. ABDOMEN: Soft, nontender, liver spleen not palpable, no masses palpable. PSYCH: Alert and oriented x3; mood and affect l. MUSCULOSKELETAL:No Clubbing/cyanosis;muscles-grossly intact NEUROLOGICAL: Tremors resolved INVESTIGATIONS, reviewed in the clinical context: March 12: Potassium 4.3 creatinine 0.73 AST 66 ALT 66 March 09: White count 8.6 hemoglobin 15.1 platelets 271 sodium 146 potassium 4.4 bicarb 21 BUN 7 creatinine 0.64 AST 92 ALT 85 serum alcohol 4 1 Assessment plan: -Early alcohol withdrawal syndrome: Improved Treated with Valium and CIWA scale. -Alcohol use disorder Thiamine. multivitamin Discharged on naltrexone 50 mg a day -Chronic nicotine dependence cigarette smoker Nicotine patch -Alcoholic hepatitis Outpatient follow-up with Dr. Valentin Darby -Full code Disposition: Home Past Medical History Past Medical History: No Reported History History of Any Multi-Drug Resistant Organisms: None Reported Past Surgical History: No Surgical Hx Reported Past Anesthesia/Blood Transfusion Reactions: No Reported Reaction Past Psychological History: No Psychological Hx Reported Smoking Status: Current every day smoker Past Alcohol Use History: Abuse, Daily, Heavy Past Drug Use History: Marijuana Plan - Discharge Summary Discharge Rx Participant: No New Discharge Prescriptions: New Naltrexone HCl [Revia] 50 mg PO DAILY #30 tablet Nicotine 21Mg/24Hr Patch [Habitrol] 1 patch TRANSDERM HS #30 patch Multivitamins, Thera [Multivitamin (formulary)] 1 each PO DAILY #30 tab Famotidine [Pepcid] 20 mg PO BID #60 tab Thiamine [Vitamin B-1] 100 mg PO DAILY #30 tab Discharge Medication List Famotidine [Pepcid] 20 mg PO BID #60 tab 03/12/24 [Rx] Multivitamins, Thera [Multivitamin (formulary)] 1 each PO DAILY #30 tab 03/12/24 [Rx] Naltrexone HCl [Revia] 50 mg PO DAILY #30 tablet 03/12/24 [Rx] Nicotine 21Mg/24Hr Patch [Habitrol] 1 patch TRANSDERM HS #30 patch 03/12/24 [Rx] Thiamine [Vitamin B-1] 100 mg PO DAILY #30 tab 03/12/24 [Rx] Follow up Appointment(s)/Referral(s): Suly Darby MD [STAFF PHYSICIAN] - 4 Weeks Cordell Galvez MD [Primary Care Provider] - 1-2 days Patient Instructions/Handouts: Abuse of Alcohol (DC) Discharge/Stand Alone Forms: AA Meetings [place], Outpatient Counseling, Inp Substance Abuse Facilities Discharge Disposition: HOME SELF-CARE
== END 2024-03-12 13:00 | disposition home or self-care (01) ==
LOC: EC 21:38 → 4SSUR 03-10 00:02 → INTOOBSV 03-10 00:02 → 6NMEDSUR 03-10 00:41
PROVIDERS: ADMIT Hospitalist; ATTEND Hospitalist
DX: F10.239 Alcohol dependence with withdrawal, unspecified (principal); F17.210 Nicotine dependence, cigarettes, uncomplicated; K70.10 Alcoholic hepatitis without ascites
CPT/HCPCS: 96376; 96372 ×4; 96374; 99285; 36415; 80053 ×2; 85025; 80320; G0378 ×3; S4990 ×3; J2060 ×2; J3411; J1650 ×3

== ENCOUNTER 2024-04-12 22:34 | Observation (INO) | payer OTHER ==
[2024-04-12] MEDS ORDERED: LORazepam 2 MG/ML INJ IV PRN ×2 (23:39)
[2024-04-12 23:46] LABS: Glucose,Whole Blood 62 mg/dL (70-110)
[2024-04-12] MEDS: THIAMINE 100 MG/ML 2 ML VIAL IM STA (23:58)
[2024-04-12] MEDS: ONDANSETRON 4 MG/2 ML VIAL IVP STA (23:59)
[2024-04-13] MEDS: SODIUM CHLORIDE 0.9% 1,000 ML IV STA
[2024-04-13 00:32] LABS: Basophils # (A) 0.1 k/uL (0-0.2); Basophils % (A) 1 %; Eosinophils # (A) 0.4 k/uL (0-0.7); Eosinophils % (A) 3 %; HCT 46.4 % (39.0-53.0); HGB 14.9 gm/dL (13.0-17.5); Lymphocytes # (A) 2.1 k/uL (1.0-4.8); Lymphocytes % (A) 17 %; MCH 32.9 pg (25.0-35.0); MCV 102.9 fL (80.0-100.0); Macrocytosis Slight; Mean Platelet Volume 7.9; Monocytes # (A) 0.6 k/uL (0-1.0); Monocytes % (A) 5 %; Neutrophils % (A) 72 %; Platelet Count 287 k/uL (150-450); RBC 4.51 m/uL (4.30-5.90); WBC 12.5 k/uL (3.8-10.6)
[2024-04-13 00:35] LABS: ALT 20 U/L (4-49); AST 39 U/L (17-59); African American GFR (CKD) >90 (>60 ml/min/1.73 sqM); Albumin 4.8 g/dL (3.5-5.0); Alkaline Phosphatase 67 U/L (38-126); Amylase 80 U/L (30-110); Anion Gap 13 mmol/L; Blood Urea Nitrogen 12 mg/dL (9-20); Calcium 8.9 mg/dL (8.4-10.2); Carbon Dioxide 18 mmol/L (22-30); Chloride 113 mmol/L (98-107); Glucose 51 mg/dL (74-99); Lipase 149 U/L (23-300); Magnesium 1.9 mg/dL (1.6-2.3); Non-African American GFR(CKD) >90 (>60 ml/min/1.73 sqM); Potassium 4.2 mmol/L (3.5-5.1); Sodium 144 mmol/L (137-145); Total Bilirubin 0.4 mg/dL (0.2-1.3); Total Protein 7.6 g/dL (6.3-8.2)
[2024-04-13 00:44] LABS: Alcohol 300 mg/dL
[2024-04-13] MEDS ORDERED: ONDANSETRON 4 MG/2 ML VIAL IVP PRN (00:59)
[2024-04-13] MEDS ORDERED: ACETAMINOPHEN TAB 325 MG TAB PO PRN (00:59)
[2024-04-13] MEDS ORDERED: NALOXONE 0.4 MG/ML 1 ML VIAL IV PRN (00:59)
--- NOTE | 2024-04-13 01:01 | ED ---
Alcohol HPI - General Chief Complaint: Alcohol Stated Complaint: ETOH Time Seen by Provider: 04/13/24 01:00 Source: patient, EMS, RN notes reviewed Mode of arrival: EMS Limitations: altered mental status - History of Present Illness Initial Comments: 44-year-old male presented to ER via EMS with chief complaint of alcohol intoxication. Patient states he is trying to withdrawal and slowly decreasing his amount consumed daily. He states he consumed two 25 ounce beers this evening. He states he typically drinks much more but is slowly decreasing his daily consumed amount. Patient is also complaining of abdominal pain. He describes it as sharp in nature and is also endorsing nausea. He denies any other drug use. No fevers, chills, vomiting, constipation/diarrhea, urinary complaints or peripheral edema. Patient is intoxicated on evaluation and is a poor historian - Related Data Previous Rx's Medication Instructions Recorded Famotidine [Pepcid] 20 mg PO BID #60 tab 03/12/24 Multivitamins, Thera [Multivitamin 1 each PO DAILY #30 tab 03/12/24 (formulary)] Naltrexone HCl [Revia] 50 mg PO DAILY #30 tablet 03/12/24 Nicotine 21Mg/24Hr Patch [Habitrol] 1 patch TRANSDERM HS #30 patch 03/12/24 Thiamine [Vitamin B-1] 100 mg PO DAILY #30 tab 03/12/24 Allergies Allergy/AdvReac Type Severity Reaction Status Date / Time No Known Allergies Allergy Verified 03/10/24 07:43 Review of Systems ROS Statement: Those systems with pertinent positive or pertinent negative responses have been documented in the HPI. ROS Other: All systems not noted in ROS Statement are negative. Past Medical History Past Medical History: No Reported History Additional Past Medical History / Comment(s): Alcohol Abuse, Alcohol intoxication History of Any Multi-Drug Resistant Organisms: None Reported Past Surgical History: No Surgical Hx Reported Past Anesthesia/Blood Transfusion Reactions: No Reported Reaction Past Psychological History: No Psychological Hx Reported Smoking Status: Current every day smoker Past Alcohol Use History: Abuse, Daily, Heavy Past Drug Use History: Marijuana General Exam Limitations: altered mental status General appearance: appears intoxicated Respiratory exam: Present: normal lung sounds bilaterally. Absent: respiratory distress, wheezes, rales, rhonchi, stridor Cardiovascular Exam: Present: regular rate, normal rhythm, normal heart sounds. Absent: systolic murmur, diastolic murmur, rubs, gallop, clicks GI/Abdominal exam: Present: soft, normal bowel sounds. Absent: distended, te nderness, guarding, rebound, rigid Skin exam: Present: warm, dry, intact, normal color. Absent: rash Course Vital Signs 04/12/24 04/12/24 04/12/24 22:50 23:24 23:53 Temperature 97.8 F Pulse Rate 83 82 91 Respiratory 16 16 Rate Blood Pressure 115/75 O2 Sat by Pulse 94 L 94 L 98 Oximetry 04/13/24 00:11 Temperature Pulse Rate 94 Respiratory 16 Rate Blood Pressure 120/72 O2 Sat by Pulse Oximetry - Reevaluation(s) Reevaluation #1: 04/13/24 02:19 Case discussed with [facility] for admission. Medical Decision Making - Medical Decision Making Was pt. sent in by a medical professional or institution (ARMANDO Robertson, PREVENTION RN, urgent care, hospital, or group home...) When possible be specific @ -No Did you speak to anyone other than the patient for history (EMS, parent, family, police, friend...)? What history was obtained from this source @ -No Did you review nursing and triage notes (agree or disagree)? Why? @ -I reviewed and agree with nursing and triage notes Were old charts reviewed (outside hosp., previous admission, EMS record, old EKG, old radiological studies, urgent care reports/EKG's, group home records)? Report findings @ -No old charts were reviewed Differential Diagnosis (chest pain, altered mental status, abdominal pain women, abdominal pain men, vaginal bleeding, weakness, fever, dyspnea, syncope, headache, dizziness, GI bleed, back pain, seizure, CVA, palpatations, mental health, musculoskeletal)? @ -Alcohol intoxication, drug use, electrolyte abnormality, pancreatitis This list is not meant to be all-inclusive EKG interpreted by me (3pts min.). @ -None X-rays interpreted by me (1pt min.). @ -None done CT interpreted by me (1pt min.). @ -None done U/S interpreted by me (1pt. min.). @ -None done What testing was considered but not performed or refused? (CT, X-rays, U/S, labs)? Why? @ -None What meds were considered but not given or refused? Why? @ -None Did you discuss the management of the patient with other professionals (professionals i.e. DrShahzad, PA, PREVENTION RN, lab, RT, psych nurse, high school social studies teacher, wellness nurse rn, teacher, human resources officer, renal case manager)? Give summary @ -No Was smoking cessation discussed for >3mins.? @ -No Was critical care preformed (if so, how long)? @ -No Were there social determinants of health that impacted care today? How? (Homelessness, low income, unemployed, alcoholism, drug addiction, transportation, low edu. Level, literacy, decrease access to med. care, half-way, rehab)? @ -No Was there de-escalation of care discussed even if they declined (Discuss DNR or withdrawal of care, Hospice)? DNR status @ -No What co-morbidities impacted this encounter? (DM, HTN, Smoking, COPD, CAD, Cancer, CVA, ARF, Chemo, Hep., AIDS, mental health diagnosis, sleep apnea, morbid obesity)? @ -Alcoholism Was patient admitted / discharged? Hospital course, mention meds given and route, prescriptions, significant lab abnormalities, going to OR and other pertinent info. @ -Admitted. 44-year-old male presented to ER with a chief complaint of alcohol intoxication. History and physical exam completed. Vitals stable. Lindsey jang is intoxicated on exam but in no signs of acute distress and nontoxic- appearing. He is a poor historian and is slurring words. Laboratory studies obtained remarkable for leukocytosis WBC 12.5, lactic 2.5 which is likely related to dehydration. Serum alcohol 300 no associated transaminitis.. Chloride 113, carbon dioxide 18. Patient was slightly hypoglycemic glucose of 62 with improvement after oral intake to 103. Patient received 1 L IV fluids, Zofran and thiamine. CIWA and Ativan protocol initiated. Admission considered due to alcohol intoxication. Case discussed with [facility]. Patient admitted in stable condition. Case discussed with ED attending, Dr. Curiel. Undiagnosed new problem with uncertain prognosis? @ -No Drug Therapy requiring intensive monitoring for toxicity (Heparin, Nitro, Insulin, Cardizem)? @ -No Were any procedures done? @ -No Diagnosis/symptom? @- Alcohol intoxication/hypoglycemia Acute, or Chronic, or Acute on Chronic? @ -Acute Uncomplicated (without systemic symptoms) or Complicated (systemic symptoms)? @ -Complicated Side effects of treatment? @ -No Exacerbation, Progression, or Severe Exacerbation? @ -No Poses a threat to life or bodily function? How? (Chest pain, USA, NV, pneumonia, PE, COPD, DKA, ARF, appy, cholecystitis, CVA, Diverticulitis, Homicidal, Suicidal, threat to staff... and all critical care pts) @ -Yes, alcohol intoxication can lead to alcohol withdrawals. Alcohol withdrawals can be associated with seizures or delirium tremors. - Lab Data Result diagrams: 04/12/24 23:50 04/12/24 23:50 Lab Results 04/12/24 04/12/24 04/12/24 Range/Units 23:45 23:50 23:50 WBC 12.5 H (3.8-10.6) k/uL RBC 4.51 (4.30-5.90) m/uL Hgb 14.9 (13.0-17.5) gm/dL Hct 46.4 (39.0-53.0) % MCV 102.9 H (80.0-100.0) fL MCH 32.9 (25.0-35.0) pg MCHC 32.0 (31.0-37.0) g/dL RDW 13.0 (11.5-15.5) % Plt Count 287 (150-450) k/uL MPV 7.9 Neutrophils % 72 % Lymphocytes % 17 % Monocytes % 5 % Eosinophils % 3 % Basophils % 1 % Neutrophils # 9.0 H (1.3-7.7) k/uL Lymphocytes # 2.1 (1.0-4.8) k/uL Monocytes # 0.6 (0-1.0) k/uL Eosinophils # 0.4 (0-0.7) k/uL Basophils # 0.1 (0-0.2) k/uL Macrocytosis Slight Sodium 144 (137-145) mmol/L Potassium 4.2 (3.5-5.1) mmol/L Chloride 113 H (98-107) mmol/L Carbon Dioxide 18 L (22-30) mmol/L Anion Gap 13 mmol/L BUN 12 (9-20) mg/dL Creatinine 0.70 (0.66-1.25) mg/dL Est GFR (CKD-EPI)AfAm >90 (>60 ml/min/1.73 sqM) Est GFR (CKD-EPI)NonAf >90 (>60 ml/min/1.73 sqM) Glucose 51 L (74-99) mg/dL POC Glucose (mg/dL) 62 L (70-110) mg/dL POC Glu [employer] PILO Ruiz Mcghee Plasma Lactic Acid Yonatan (0.7-2.0) mmol/L Calcium 8.9 (8.4-10.2) mg/dL Magnesium 1.9 (1.6-2.3) mg/dL Total Bilirubin 0.4 (0.2-1.3) mg/dL AST 39 (17-59) U/L ALT 20 (4-49) U/L Alkaline Phosphatase 67 (38-126) U/L Total Protein 7.6 (6.3-8.2) g/dL Albumin 4.8 (3.5-5.0) g/dL Amylase 80 (30-110) U/L Lipase 149 (23-300) U/L Serum Alcohol 300 H* mg/dL 04/12/24 04/13/24 04/13/24 Range/Units 23:50 02:06 03:04 WBC (3.8-10.6) k/uL RBC (4.30-5.90) m/uL Hgb (13.0-17.5) gm/dL Hct (39.0-53.0) % MCV (80.0-100.0) fL MCH (25.0-35.0) pg MCHC (31.0-37.0) g/dL RDW (11.5-15.5) % Plt Count (150-450) k/uL MPV Neutrophils % % Lymphocytes % % Monocytes % % Eosinophils % % Basophils % % Neutrophils # (1.3-7.7) k/uL Lymphocytes # (1.0-4.8) k/uL Monocytes # (0-1.0) k/uL Eosinophils # (0-0.7) k/uL Basophils # (0-0.2) k/uL Macrocytosis Sodium (137-145) mmol/L Potassium (3.5-5.1) mmol/L Chloride (98-107) mmol/L Carbon Dioxide (22-30) mmol/L Anion Gap mmol/L BUN (9-20) mg/dL Creatinine (0.66-1.25) mg/dL Est GFR (CKD-EPI)AfAm (>60 ml/min/1.73 sqM) Est GFR (CKD-EPI)NonAf (>60 ml/min/1.73 sqM) Glucose (74-99) mg/dL POC Glucose (mg/dL) 103 83 (70-110) mg/dL POC Glu [employer] ID Jennings Juan Danielaliyah Mcghee Glori[place]ung Plasma Lactic Acid Yonatan 2.5 H* (0.7-2.0) mmol/L Calcium (8.4-10.2) mg/dL Magnesium (1.6-2.3) mg/dL Total Bilirubin (0.2-1.3) mg/dL AST (17-59) U/L ALT (4-49) U/L Alkaline Phosphatase (38-126) U/L Total Protein (6.3-8.2) g/dL Albumin (3.5-5.0) g/dL Amylase (30-110) U/L Lipase (23-300) U/L Serum Alcohol mg/dL Disposition Clinical Impression: Alcoholic intoxication, Hypoglycemia Disposition: ADMITTED IP TO THIS HOSP Condition: Stable Referrals: Cordell Galvez MD [Primary Care Provider] - 1-2 days Time of Disposition: 01:00
[2024-04-13 02:08] LABS: Glucose,Whole Blood 103 mg/dL (70-110)
[2024-04-13 03:06] LABS: Glucose,Whole Blood 83 mg/dL (70-110)
[2024-04-13] MEDS: LORazepam 2 MG/ML INJ IV PRN (08:44)
[2024-04-13] MEDS: NICOTINE 21MG/24HR PATCH TRANSDERM STA (08:52)
[2024-04-13 10:40] VITALS: RESP 16; TEMP 98
--- NOTE | 2024-04-13 11:46 | P.HPIM ---
History of Present Illness 44-year-old male came in with alcohol intoxication patient states that he is slowly cutting down alcohol and no readings 2 beers a day patient is presently not having any withdrawals. Patient is not willing to quit alcohol wanted to be discharged today although is complaining of some occasional nausea, alcoholic gastritis. Patient is awake enough to be discharged REVIEW OF SYSTEMS: All other systems are negative except those mentioned in the HPI PHYSICAL EXAMINATION: GENERAL: The patient is alert and oriented x3, not in any acute distress. Well developed, well nourished. HEENT: Pupils are round and equally reacting to light. EOMI. No scleral icterus. No conjunctival pallor. Normocephalic, atraumatic. No pharyngeal erythema. No thyromegaly. CARDIOVASCULAR: S1 and S2 present. No murmurs, rubs, or gallops. PULMONARY: Chest is clear to auscultation, no wheezing or crackles. ABDOMEN: Soft, nontender, nondistended, normoactive bowel sounds. No palpable organomegaly. MUSCULOSKELETAL: No joint swelling or deformity. EXTREMITIES: No cyanosis, clubbing, or pedal edema. NEUROLOGICAL: Gross neurological examination did not reveal any focal deficits. SKIN: No rashes. Assessment and plan -Alcohol intoxication. Resolved at this time patient will be discharged today as patient is not willing to quit alcohol withdrawal -Alcoholic gastritis patient will be given prescription for Protonix -Leukocytosis reactive without any evidence of infection Patient will be discharged today as there is not much can be offered here in the hospital as he is not willing to quit alcohol at this time Past Medical History Past Medical History: No Reported History Additional Past Medical History / Comment(s): Alcohol Abuse, Alcohol intoxication History of Any Multi-Drug Resistant Organisms: None Reported Past Surgical History: No Surgical Hx Reported Past Anesthesia/Blood Transfusion Reactions: No Reported Reaction Past Psychological History: No Psychological Hx Reported Smoking Status: Current every day smoker Past Alcohol Use History: Abuse, Daily, Heavy Past Drug Use History: Marijuana Medications and Allergies Home Medications Medication Instructions Recorded Confirmed Type Pantoprazole [Protonix] 40 mg PO DAILY #30 tab 04/13/24 Rx Allergies Allergy/AdvReac Type Severity Reaction Status Date / Time No Known Allergies Allergy Verified 04/13/24 10:01 Physical Exam Vitals: Vital Signs Temp Pulse Resp BP Pulse Ox 04/13/24 10:39 98 F 83 16 112/71 94 L 04/13/24 06:20 98.3 F 82 17 117/70 94 L 04/13/24 00:11 94 16 120/72 04/12/24 23:53 91 98 04/12/24 23:24 82 16 94 L 04/12/24 22:50 97.8 F 83 16 115/75 94 L Intake and Output 04/12/24 04/13/24 04/13/24 22:59 06:59 14:59 Other: Weight 72.575 kg Results CBC & Chem 7: 04/12/24 23:50 04/12/24 23:50 Labs: Abnormal Lab Results - Last 24 Hours (Table) 04/12/24 04/12/24 04/12/24 Range/Units 23:45 23:50 23:50 WBC 12.5 H (3.8-10.6) k/uL MCV 102.9 H (80.0-100.0) fL Neutrophils # 9.0 H (1.3-7.7) k/uL Chloride 113 H (98-107) mmol/L Carbon Dioxide 18 L (22-30) mmol/L Glucose 51 L (74-99) mg/dL POC Glucose (mg/dL) 62 L (70-110) mg/dL Plasma Lactic Acid Yonatan (0.7-2.0) mmol/L Serum Alcohol 300 H* mg/dL 04/12/24 Range/Units 23:50 WBC (3.8-10.6) k/uL MCV (80.0-100.0) fL Neutrophils # (1.3-7.7) k/uL Chloride (98-107) mmol/L Carbon Dioxide (22-30) mmol/L Glucose (74-99) mg/dL POC Glucose (mg/dL) (70-110) mg/dL Plasma Lactic Acid Yonatan 2.5 H* (0.7-2.0) mmol/L Serum Alcohol mg/dL
--- NOTE | 2024-04-13 11:46 | P.DS ---
Providers Date of admission: 04/13/24 01:56 Attending physician: Chava Gaming Primary care physician: Cordell Galvez [facility] Course: 44-year-old male came in with alcohol intoxication patient states that he is slowly cutting down alcohol and no readings 2 beers a day patient is presently not having any withdrawals. Patient is not willing to quit alcohol wanted to be discharged today although is complaining of some occasional nausea, alcoholic gastritis. Patient is awake enough to be discharged PHYSICAL EXAMINATION: GENERAL: The patient is alert and oriented x3, not in any acute distress. Well developed, well nourished. HEENT: Pupils are round and equally reacting to light. EOMI. No scleral icterus. No conjunctival pallor. Normocephalic, atraumatic. No pharyngeal erythema. No thyromegaly. CARDIOVASCULAR: S1 and S2 present. No murmurs, rubs, or gallops. PULMONARY: Chest is clear to auscultation, no wheezing or crackles. ABDOMEN: Soft, nontender, nondistended, normoactive bowel sounds. No palpable organomegaly. MUSCULOSKELETAL: No joint swelling or deformity. EXTREMITIES: No cyanosis, clubbing, or pedal edema. NEUROLOGICAL: Gross neurological examination did not reveal any focal deficits. SKIN: No rashes. Assessment and plan -Alcohol intoxication. Resolved at this time patient will be discharged today as patient is not willing to quit alcohol withdrawal -Alcoholic gastritis patient will be given prescription for Protonix -Leukocytosis reactive without any evidence of infection Patient will be discharged today as there is not much can be offered here in the hospital as he is not willing to quit alcohol at this time Patient Condition at Discharge: Stable Plan - Discharge Summary New Discharge Prescriptions: New Pantoprazole [Protonix] 40 mg PO DAILY #30 tab Discharge Medication List Pantoprazole [Protonix] 40 mg PO DAILY #30 tab 04/13/24 [Rx] Follow up Appointment(s)/Referral(s): Cordell Galvez MD [Primary Care Provider] - 1-2 days Discharge Disposition: HOME SELF-CARE
[2024-04-13 12:54] VITALS: BP 138/78; PULSE 94
== END 2024-04-13 12:55 | disposition home or self-care (01) ==
LOC: EC 22:34 → 5NMEDONC 04-13 01:56
PROVIDERS: ADMIT Hospitalist; ATTEND Hospitalist
DX: F10.229 Alcohol dependence with intoxication, unspecified (principal); K29.20 Alcoholic gastritis without bleeding; E16.2 Hypoglycemia, unspecified; F17.200 Nicotine dependence, unspecified, uncomplicated; Y90.8 Blood alcohol level of 240 mg/100 ml or more; D72.829 Elevated white blood cell count, unspecified; Z79.899 Other long term (current) drug therapy
CPT/HCPCS: 36415 ×2; 80053; 82150; 83605; 83690; 83735; 85025; 80320; G0378; S4990; J2060; J3411; J2405; 96361; 96372; 96374; 96375; 99285

== ENCOUNTER 2025-02-28 15:39 | Emergency (ER) | payer OTHER ==
[2025-02-28 15:44] VITALS: BP 127/91; PULSE 95; RESP 18; TEMP 98.4
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
== END 2025-02-28 16:51 | disposition left against medical advice (07) ==
LOC: EC 15:39
DX: S09.90XA Unspecified injury of head, initial encounter (principal); F17.200 Nicotine dependence, unspecified, uncomplicated; Z53.21 Procedure and treatment not carried out due to patient leaving prior to being seen by health care provider; Y04.0XXA Assault by unarmed brawl or fight, initial encounter
CPT/HCPCS: 70450; 72125; 99283

== ENCOUNTER 2025-03-07 12:01 | Emergency (ER) | payer OTHER ==
[2025-03-07 12:29] VITALS: RESP 18
[2025-03-07 13:09] LABS: Appearance,Urine Clear (Clear); Bilirubin,Urine Negative (Negative); Blood,Urine Negative (Negative); Color,Urine Colorless; Glucose,Urine (UA) Negative (Negative); Ketones,Urine Negative (Negative); Leukocyte Esterase,Urine Negative (Negative); Nitrite,Urine Negative (Negative); PH, Urine 5.5 (5.0-8.0); Protein,Urine Negative (Negative); Specific Gravity,Urine 1.012 (1.001-1.035); Urobilinogen,Urine <2.0 mg/dL (<2.0)
[2025-03-07 13:16] LABS: Amphetamine Screen,Urine Not Detected (NotDetected); Barbiturate Screen,Urine Not Detected (NotDetected); Benzodiazepines Screen,Urine Not Detected (NotDetected); Cocaine Screen,Urine Not Detected (NotDetected); Methadone Screen, Urine Not Detected (NotDetected); Opiate Screen,Urine Not Detected (NotDetected); Oxycodone Screen, Urine Not Detected (NotDetected); Phencyclidine Screen,Urine Not Detected (NotDetected); Tricyclic Antidepressant,Urine Not Detected (NotDetected); Urn Cannabinoid Scrn Detected (NotDetected)
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
[2025-03-07] MEDS: NICOTINE 21MG/24HR PATCH TRANSDERM STA (18:33)
[2025-03-08 06:20] VITALS: BP 148/99; PULSE 79; TEMP 98.4
== END 2025-03-08 06:40 | disposition home or self-care (01) ==
LOC: EC 12:01
DX: Z00.8 Encounter for other general examination (principal); F10.129 Alcohol abuse with intoxication, unspecified; F17.200 Nicotine dependence, unspecified, uncomplicated; Y90.9 Presence of alcohol in blood, level not specified
CPT/HCPCS: 82075; 81003; 80306; 99285; S4990